=== PATIENT | male | born 1950 | race Caucasian/White ===

== ENCOUNTER 2018-08-13 08:36 | Inpatient (IN) ==
[2018-08-13] MEDS ORDERED: NORMAL SALINE 1,000 ML IV PRN (08:54)
--- NOTE | 2018-08-13 09:04 | ERNOTE ---
Trauma/Assault HPI - General Stated Complaint: fall Time Seen by Provider: 08/13/18 08:42 Source: patient, family Exam Limitations: clinical condition - Immun/Allergies/Home Medications Immunizations: IMMUNIZATION HX Immunizations Up to Date No Allergies/Adverse Reactions: Allergies cat dander Allergy (Intermediate, Verified 08/13/18 08:45) Swelling (Other) 01/12/2013 Home Medications: HOME MEDICATIONS aspirin 81 mg tablet,delayed release 81 mg PO DAILY 09/29/17 [Last Taken Unknown] silver sulfadiazine 1 % topical cream 1 applic TP DAILY #25 g 01/04/18 [Last Taken Unknown] benazepril 20 mg tablet 20 mg PO BID #180 tab 01/12/18 [Last Taken Unknown] glipizide 10 mg tablet 10 mg PO BID #180 tab 01/12/18 [Last Taken Unknown] metformin 1,000 mg tablet 1,000 mg PO BID #180 tab 01/12/18 [Last Taken Unknown] gabapentin 100 mg capsule 100 mg PO BID #60 cap 06/17/18 [Last Taken Unknown] furosemide 20 mg tablet 20 mg PO DAILY #3 tab 07/20/18 [Last Taken Unknown] - History of Present Illness Narrative: Patient brought in by EMS due to fall. He fell in the bathroom approximately 1800 last night was there overnight because he was unable to get up and unable to contact anyone. He is alert and oriented x4 although sometimes he is somewhat confused about situation or place but then reorients pretty quickly. He states he has fallen a number of times over the last 6 months or so. He states he did not fall hard but lowered himself to the floor and was unable to get up. Location Occurred: Reports: home Pain Location: Reports: none Method of Injury: Reports: fall Severity: moderate Loss of Consciousness: Reports: no loss of consciousness Review of Systems - Review of Systems Constitutional: Present: chills - Over the past 2 to 3 days, weakness, fatigue. Absent: recent illness EYE: Absent: vision changes ENT: Absent: nose congestion, nasal drainage Respiratory: Absent: shortness of breath Cardiology: Absent: chest pain Gastrointestinal/Abdominal: Absent: nausea, vomiting, abdominal pain Genitourinary: Present: frequency - which is usual for him. . Absent: pain, dysuria Musculoskeletal: Absent: back pain, joint pain Skin: Present: rash, lesions - on left foot, has been there for years and has had Dr. Fischer treat it in the past. , change in color - right foot Neurological: Present: weakness, numbness - diabetic neuropathy in feet. Endocrine: Present: excessive sweating Hematologic/Lymphatic: Present: easy bruising Medical History (Updated 08/13/18 @ 10:29 by Sukumar Anderson DO) Type II diabetes mellitus (Chronic) Diabetic foot ulcer (Chronic) Diabetes mellitus, type II (Chronic) Onset Date: 04/08/16 Diabetic polyneuropathy (Chronic) Onset Date: 10/14/12 Morbid obesity with BMI of 40.0-44.9, adult (Chronic) Onset Date: 10/21/16 Hyperlipidemia (Chronic) Onset Date: 04/08/16 Hypertension, essential (Chronic) Onset Date: 04/08/16 CKD (chronic kidney disease) stage 3, GFR 30-59 ml/min (Chronic) Onset Date: 08/04/16 Influenza vaccine refused Patient does not want to receive. 12/31/17 Surgical History: Surgical History (Updated 10/30/17 @ 15:35 by Rita Paredes RN) Cataract Onset Date: 2011 Colonoscopy refused Onset Date: 01/15/17 History of tonsillectomy Onset Date: 1956 Family History: Family History (Updated 09/29/17 @ 13:43 by Jigna Hinton LPN) Father Cancer Liver cancer Mother Cancer colon cancer Social History: Preferred Language Syriac Smoking Status Never smoker Alcohol Use none Drug Use none (Last Updated 07/19/18 @ 12:22 by Ella Inman MD) No Social History Section defined Physical Exam - Physical Exam General Appearance: Present: wd/wn, alert, no apparent distress Head Exam: Present: normal inspection, no evidence of injury Eye Exam: Normal inspection: bilateral Ears, Nose, Throat: Present: dry mucous membranes Neck: Present: normal inspection, nontender, supple Respiratory: Present: no respiratory distress, no accessory muscle use, chest nontender, lungs clear Cardiovascular/Chest: Present: regular rate, rhythm, no murmur Gastrointestinal/Abdominal: Present: normal bowel sounds, nontender, nondistended, soft Extremity Exam: Present: normal except -, other - Swelling of left great toe that patient states is chronic. Neurological Exam: Present: alert, oriented, normal mood/affect Skin Exam: Present: skin rash - Erythema to the right foot almost to the ankle there is a slight abrasion on the lateral fifth toe on the right. Left great toe is 2-2.5 times the size of the right. there is a large ulcerative lesion on the pad of the left great toe that is black and seems to be ulcerated in the center does have somewhat of a warty look Detailed Trauma Exam Best Eye Response ([place]): (4) open spontaneously Best Verbal Response ([place]): (4) confused conversation - Some of the time Best Motor Response ([place]): (6) obeys commands [place] Total: 14 - C-Spine cleared by: Neg C-spine CT & exam Progress - Results and Orders Patient's Lab Results:: I have reviewed the patient's lab results. Results and Orders: Laboratory Tests 08/13/18 08/13/18 08/13/18 09:05 09:05 09:05 WBC 15.3 H Hgb 13.0 L Hct 40.1 L Plt Count 295 Neutrophils % 89.8 H Sodium 135 Potassium 4.3 Chloride 98 BUN 55 H D Creatinine 2.19 H D Random Glucose 229 H Lactic Acid, Venous 2.3 H* Calcium 9.1 Total Bilirubin 0.9 AST 322 H ALT 131 H Creatine Kinase 7237 H Albumin 2.5 L Ethyl Alcohol Less than 3.0 - Vital Signs Patient's Vital Signs:: I have reviewed the patient's vital signs. Vital Signs: Vital Signs 08/13/18 08:40 Temperature 37.2 C Pulse Rate 101 H Respiratory Rate 18 Blood Pressure 158/79 H O2 Sat by Pulse Oximetry 97 - EKG EKG #1 EKG: supraventricular tachycardia, nonspecific ST T wave changes EKG read: Interp. by me - X-Ray X-Ray #1 X-Ray: chest Interpretation: Reviewed by me X-ray Comments: IMPRESSION: Hypoventilatory changes. Left lung basilar atelectasis. Electronically signed by Surendra Gimenez M.D.. - CT/Ultrasound CT/Ultrasound Narrative: Ct head without: IMPRESSION: 1. Evaluation is suboptimal due to patient motion. No obvious acute intracranial process suggested but consider repeat examination when patient is able to cooperate. 2. Additional comments as above. Electronically signed by Surendra Gimenez M.D. CT cervical spine: IMPRESSION: 1. Evaluation suboptimal due to patient motion, but no definite signs of cervical spine fracture. If there is a persistent concern, consider repeat examination when patient is able to cooperate. 2. 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 3. Additional comments are as above. Clinical correlation is still recommended. If there is a persistent clinical concern for injury, consider further evaluation by MRI. Electronically signed by Surendra Gimenez M.D.. - Progress/Reassessment Progress Note-Subjective: 08/13/18 10:[address] Galarza and she agrees with admission Departure Clinical Impression: Cellulitis and abscess of foot Rhabdomyolysis Qualifiers: Rhabdomyolysis type: traumatic Encounter type: initial encounter Qualified Code(s): T79.6XXA - Traumatic ischemia of muscle, initial encounter Sepsis Qualifiers: Sepsis type: sepsis due to unspecified organism Qualified Code(s): A41.9 - Sepsis, unspecified organism - Departure Disposition: Still a patient Condition: Fair Referrals: Ella Inman MD [Primary Care Provider] - Critical Care Time - Critical Care Critical Time Spent:: No
[2018-08-13 09:41] LABS: Hematocrit 40.1 % (42.0-52.0); Mean Cell Volume 84.8 fl (78-100); Mean Corpuscular Hemoglobin 27.5 pg (27-31); Mean Corpuscular Hgb Conc 32.4 g/dl (32-36); Mean Platelet Volume 11.4 fl (8-11.3); Neutrophil # 13.8 K/mm3 (1.3-6.0); Neutrophil % 89.8 % (42-75.0); Platelet Count 295 K/mm3 (150-450); Red Blood Count 4.73 M/mm3 (4.7-6.0); White Blood Count 15.3 K/mm3 (4.0-10.5)
[2018-08-13 09:49] LABS: ALT 131 U/L (19-67); AST 322 U/L (0-48); Albumin * 2.5 gm/dl (3.4-5.0); Alkaline Phosphatase * 49 U/L (50-170); Anion Gap 20.9 mmol/L (6.8-13.8); BUN/Creatinine Ratio 25.1 (9.0-21.6); Bilirubin, Total 0.9 mg/dL (0.0-1.1); Blood Urea Nitrogen 55 mg/dL (6-23); Calcium * 9.1 mg/dL (7.9-10.9); Carbon Dioxide 20.4 mmol/L (24-32.6); Chloride 98 mmol/L (97-106); Glucose * 229 mg/dL (70-110); Potassium 4.3 mmol/L (3.4-4.6); Sodium 135 mmol/L (132-142); Total Protein 7.9 gm/dL (6.2-8.2)
[2018-08-13 10:06] LABS: CK Total * 7237 U/L (0-259)
[2018-08-13 10:20] LABS: Urine Bilirubin 1 mg/dl (NEGATIVE); Urine Blood 250 /ul (NEGATIVE); Urine Ketone 15 mg/dL (NEGATIVE); Urine Nitrite Negative (NEGATIVE); Urine Protein 100 mg/dL (NEGATIVE); Urine Specific Gravity 1.025 SP.GR. (1.005-1.030); Urine Urobilinogen Normal (NORMAL); Urine pH 5.5 pH (5.0-7.0)
[2018-08-13 10:30] LABS: Urine Appearance Cloudy (CLEAR); Urine Color Dark Yellow; Urine WBC 0-5 /hpf (0-5)
[2018-08-13 10:31] LABS: Urine Amorphous Sediment Moderate - 2+ (NONE-FEW); Urine Bacteria 1+; Urine Mucus Moderate - 2+; Urine RBC None Seen /hpf (0-5)
[2018-08-13] MEDS ORDERED: cefTRIAXone SODIUM 1,000 MG/100 ML BAG IV ONE (10:38)
[2018-08-13] MEDS ORDERED: NORMAL SALINE 1,000 ML IV ONE (10:38)
[2018-08-13] MEDS ORDERED: FUROSEMIDE 20 MG TABLET PO SCH (13:00)
--- NOTE | 2018-08-13 14:32 | HP ---
Chief Complaint - Chief Complaint Date of Service: 08/13/18 Time of Service: 12:15 Chief Complaint: Fall History of Present Illness: 67-year-old male with a past medical history of diabetes mellitus type 2, CKD stage III, diabetic foot ulcer, diabetic polyneuropathy, hyperlipidemia, hypertension, morbid obesity presents status post fall. Patient's states he fell in the bathroom and lay there for several days because he was not able to get himself up and he did not have his phone with him. His niece found him on the bathroom floor and states he was likely on the floor for 2-1/2 days. In the emergency department he was found to have leukocytosis of 15,000, acute kidney injury, lactic acidosis, and elevated LFTs. Chest x-ray showed hypoventilatory changes and left lung basilar atelectasis. CT head was negative for any acute intracranial processes but was suboptimal due to patient motion. CT cervical spine was negative for fracture but was also suboptimal due to motion, multilevel cervical spine disease disease and degenerative spondylopathy was noted. Medical History (Updated 08/13/18 @ 16:48 by Ella Inman MD) Type II diabetes mellitus (Chronic) Diabetic foot ulcer (Chronic) Diabetes mellitus, type II (Chronic) Onset Date: 04/08/16 Diabetic polyneuropathy (Chronic) Onset Date: 10/14/12 Morbid obesity with BMI of 40.0-44.9, adult (Chronic) Onset Date: 10/21/16 Hyperlipidemia (Chronic) Onset Date: 04/08/16 Hypertension, essential (Chronic) Onset Date: 04/08/16 CKD (chronic kidney disease) stage 3, GFR 30-59 ml/min (Chronic) Onset Date: 08/04/16 Influenza vaccine refused Patient does not want to receive. 12/31/17 Surgical History: Surgical History (Updated 08/13/18 @ 14:32 by Ella Inman MD) Cataract Onset Date: 2011 Colonoscopy refused Onset Date: 01/15/17 History of tonsillectomy Onset Date: 1956 Family History: Family History (Updated 09/29/17 @ 13:43 by Jigna Hinton LPN) Father Cancer Liver cancer Mother Cancer colon cancer Social History: Preferred Language Kiswahili Smoking Status Never smoker Alcohol Use none Drug Use none (Last Updated 07/19/18 @ 12:22 by Ella Inman MD) No Social History Section defined Review Of Systems (GEN) - Review of Systems Generalized/Overall Review: Present: Fever Respiratory: Absent: Shortness of Breath Cardiac: Absent: Chest Pain Abdominal: Absent: Abdominal Pain Musculoskeletal: Present: Joint Pain, Joint Swelling Skin: Present: Lesions Misc: All systems neg except as marked Immunizations: IMMUNIZATION HX Immunizations Up to Date No Allergies/Adverse Reactions: Allergies Allergy/AdvReac Type Severity Reaction Status Date / Time cat dander Allergy Intermediate Swelling Verified 08/13/18 15:23 (Other) Home Medications: HOME MEDICATIONS aspirin 81 mg tablet,delayed release 81 mg PO DAILY 09/29/17 [Last Taken Unknown] benazepril 20 mg tablet 20 mg PO BID #180 tab 01/12/18 [Last Taken Unknown] glipizide 10 mg tablet 10 mg PO BID #180 tab 01/12/18 [Last Taken Unknown] metformin 1,000 mg tablet 1,000 mg PO BID #180 tab 01/12/18 [Last Taken Unknown] gabapentin 100 mg capsule 100 mg PO BID #60 cap 06/17/18 [Last Taken Unknown] furosemide 20 mg tablet 20 mg PO DAILY #3 tab 07/20/18 [Last Taken Unknown] Exam - Exam Vital Signs: Vital Signs - Last Taken Temp 39.0 C H 08/13/18 13:12 Pulse 122 H 08/13/18 13:12 Resp 24 H 08/13/18 13:12 BP 138/69 08/13/18 13:12 Pulse Ox 95 08/13/18 13:12 Constitutional: Present: Alert, Oriented x3, Cooperative, Well developed, Well nourished, No distress, Middle aged, Obese ENT Exam: Present: hearing grossly normal, dry mucous membranes Eye Exam: bilateral eye: PERRL Neck: Present: non-tender, supple, trachea midline. Absent: lymphadenopathy (R), lymphadenopathy (L) Back Exam: Present: other - Excoriation posterior to left shoulder Respiratory: Present: lungs clear, No wheezing. Absent: crackles, rhonchi Cardiovascular/Chest: Present: normal peripheral pulses, regular rate, rhythm, no murmur Peripheral Pulses: dorsalis-pedis (R): 1+, dorsalis-pedis (L): 1+ Abdomen: Present: Normal bowel sounds, soft, nontender, obese Extremity: Present: pedal edema. Absent: normal range of motion Skin Exam: Present: warm/dry, other - Erythema of the left lower leg, excoriation posterior to the left shoulder, erythematous nodule lateral to left hip, open necrotic appearing black wound on plantar aspect of left great toe with swelling. Neurologic: Present: alert, normal mood/affect Appearance: Present: appropriate appearance, appropriate insight Eye contact: Present: cooperative, good eye contact Thoughts: Present: normal thought pattern, normal mood /affect Diagnostic Studies: Abnormal Lab Results 08/13/18 08/13/18 08/13/18 Range/Units 09:05 09:05 09:05 WBC 15.3 H (4.0-10.5) K/mm3 Hgb 13.0 L (13.5-18.0) gm/dL Hct 40.1 L (42.0-52.0) % MPV 11.4 H (8-11.3) fl Immature Gran % (Auto) 0.60 H (0.001-0.429) % Immature Gran # (Auto) 0.09 H (0.000-0.0310) K/mm3 Neutrophils % 89.8 H (42-75.0) % Lymphocytes % 3.6 L (20-51) % Neutrophils # 13.8 H (1.3-6.0) K/mm3 Lymphocytes # 0.55 L (1.5-3.5) k/mm3 Carbon Dioxide 20.4 L (24-32.6) mmol/L Anion Gap 20.9 H (6.8-13.8) mmol/L BUN 55 H D (6-23) mg/dL Creatinine 2.19 H D (0.4-1.4) mg/dL Est GFR (Non-Af Amer) 32 L D (60-130) mL/min BUN/Creatinine Ratio 25.1 H (9.0-21.6) Random Glucose 229 H (70-110) mg/dL Lactic Acid, Venous 2.3 H* (0.4-2.0) mmol/L AST 322 H (0-48) U/L ALT 131 H (19-67) U/L Alkaline Phosphatase 49 L (50-170) U/L Creatine Kinase 7237 H (0-259) U/L Albumin 2.5 L (3.4-5.0) gm/dl Urine Protein (NEGATIVE) mg/dL Urine Blood (NEGATIVE) /ul Urine Bilirubin (NEGATIVE) mg/dl Prot Sulfosalicylic Acd (0) mg/dL Amorphous Sediment (NONE-FEW) Urine Bacteria (NONE) Urine Mucus (NONE) 08/13/18 Range/Units 09:54 WBC (4.0-10.5) K/mm3 Hgb (13.5-18.0) gm/dL Hct (42.0-52.0) % MPV (8-11.3) fl Immature Gran % (Auto) (0.001-0.429) % Immature Gran # (Auto) (0.000-0.0310) K/mm3 Neutrophils % (42-75.0) % Lymphocytes % (20-51) % Neutrophils # (1.3-6.0) K/mm3 Lymphocytes # (1.5-3.5) k/mm3 Carbon Dioxide (24-32.6) mmol/L Anion Gap (6.8-13.8) mmol/L BUN (6-23) mg/dL Creatinine (0.4-1.4) mg/dL Est GFR (Non-Af Amer) (60-130) mL/min BUN/Creatinine Ratio (9.0-21.6) Random Glucose (70-110) mg/dL Lactic Acid, Venous (0.4-2.0) mmol/L AST (0-48) U/L ALT (19-67) U/L Alkaline Phosphatase (50-170) U/L Creatine Kinase (0-259) U/L Albumin (3.4-5.0) gm/dl Urine Protein 100 H (NEGATIVE) mg/dL Urine Blood 250 H (NEGATIVE) /ul Urine Bilirubin 1 H (NEGATIVE) mg/dl Prot Sulfosalicylic Acd 4+ H (0) mg/dL Amorphous Sediment Moderate - 2+ H (NONE-FEW) Urine Bacteria 1+ H (NONE) Urine Mucus Moderate - 2+ H (NONE) Laboratory Results WBC 15.3 K/mm3 (4.0-10.5) H 08/13/18 09:05 RBC 4.73 M/mm3 (4.7-6.0) 08/13/18 09:05 Hgb 13.0 gm/dL (13.5-18.0) L 08/13/18 09:05 Hct 40.1 % (42.0-52.0) L 08/13/18 09:05 MCV 84.8 fl (78-100) 08/13/18 09:05 MCH 27.5 pg (27-31) 08/13/18 09:05 MCHC 32.4 g/dl (32-36) 08/13/18 09:05 RDW 14.0 % (11.5-14.0) 08/13/18 09:05 Plt Count 295 K/mm3 (150-450) 08/13/18 09:05 MPV 11.4 fl (8-11.3) H 08/13/18 09:05 Immature Gran % (Auto) 0.60 % (0.001-0.429) H 08/13/18 09:05 Immature Gran # (Auto) 0.09 K/mm3 (0.000-0.0310) H 08/13/18 09:05 89.8 % (42-75.0) H 08/13/18 09:05 3.6 % (20-51) L 08/13/18 09:05 5.9 % (0.0-9) 08/13/18 09:05 0.0 % (0.0-3.0) 08/13/18 09:05 0.1 % (0.0-1.0) 08/13/18 09:05 Nucleated RBC % 0.0 k/mm3 (0-1) 08/13/18 09:05 13.8 K/mm3 (1.3-6.0) H 08/13/18 09:05 0.55 k/mm3 (1.5-3.5) L 08/13/18 09:05 0.9 k/mm3 (0.0-1.0) 08/13/18 09:05 0.0 k/mm3 (0.0-0.7) 08/13/18 09:05 Absolute Basophils 0.0 k/mm3 (0.0-0.1) 08/13/18 09:05 Sodium 135 mmol/L (132-142) 08/13/18 09:05 137 mmol/L (130-142) 08/13/18 09:05 Potassium 4.3 mmol/L (3.4-4.6) 08/13/18 09:05 Chloride 98 mmol/L (97-106) 08/13/18 09:05 Carbon Dioxide 20.4 mmol/L (24-32.6) L 08/13/18 09:05 20.9 mmol/L (6.8-13.8) H 08/13/18 09:05 BUN 55 mg/dL (6-23) H D 08/13/18 09:05 2.19 mg/dL (0.4-1.4) H D 08/13/18 09:05 Est GFR (Non-Af Amer) 32 mL/min (60-130) L D 08/13/18 09:05 25.1 (9.0-21.6) H 08/13/18 09:05 229 mg/dL (70-110) H 08/13/18 09:05 1.7 mmol/L (0.4-2.0) 08/13/18 12:00 Calcium 9.1 mg/dL (7.9-10.9) 08/13/18 09:05 Calcium Adj for Albumin 10.0 mg/dL (8.4-10.2) 08/13/18 09:05 0.9 mg/dL (0.0-1.1) 08/13/18 09:05 AST 322 U/L (0-48) H 08/13/18 09:05 ALT 131 U/L (19-67) H 08/13/18 09:05 49 U/L (50-170) L 08/13/18 09:05 7237 U/L (0-259) H 08/13/18 09:05 7.9 gm/dL (6.2-8.2) 08/13/18 09:05 2.5 gm/dl (3.4-5.0) L 08/13/18 09:05 Dark yellow 08/13/18 09:54 Cloudy (CLEAR) 08/13/18 09:54 5.5 pH (5.0-7.0) 08/13/18 09:54 Ur Specific [place] 1.025 SP.GR. (1.005-1.030) 08/13/18 09:54 100 mg/dL (NEGATIVE) H 08/13/18 09:54 Negative mg/dL (NEGATIVE) 08/13/18 09:54 15 mg/dL (NEGATIVE) 08/13/18 09:54 250 /ul (NEGATIVE) H 08/13/18 09:54 Negative (NEGATIVE) 08/13/18 09:54 1 mg/dl (NEGATIVE) H 08/13/18 09:54 Negative (NEGATIVE) 08/13/18 09:54 Prot Sulfosalicylic Acd 4+ mg/dL (0) H 08/13/18 09:54 Normal EU/dl (NORMAL) 08/13/18 09:54 Ur Leukocyte Esterase Negative /ul (NEGATIVE) 08/13/18 09:54 None seen /hpf (0-5) 08/13/18 09:54 0-5 /hpf (0-5) 08/13/18 09:54 Ur Epithelial Cells 0-5 /hpf (0-5) 08/13/18 09:54 Amorphous Sediment Moderate - 2+ (NONE-FEW) H 08/13/18 09:54 1+ (NONE) H 08/13/18 09:54 Moderate - 2+ (NONE) H 08/13/18 09:54 No culture indicated 08/13/18 09:54 Ethyl Alcohol Less than 3.0 mg/dL (0.0-10.0) 08/13/18 09:05 Assessment/Plan - Narrative Narrative: 67-year-old male with a past medical history of diabetes mellitus type 2, CKD stage III, diabetic foot ulcer, diabetic polyneuropathy, hyperlipidemia, hypertension, morbid obesity presents status post fall. Patient's states he fell in the bathroom and lay there for several days because he was not able to get himself up and he did not have his phone with him. His niece found him on the bathroom floor and states he was likely on the floor for 2-1/2 days. In the emergency department he was found to have leukocytosis of 15,000, acute kidney injury, lactic acidosis, and elevated LFTs. Chest x-ray negative for acute process. CT head was negative for any acute intracranial processes. CT cervical spine was negative for fracture. He was started on ceftriaxone 1 g, consult to Dr. Fischer was placed for the wound. Awaiting results of wound culture and blood cultures. - Assessment/Plan (1) Sepsis Assessment: Continue with ceftriaxone for now, awaiting blood cultures. Continue with IV fluids. Monitor chemistry and CBC. Problem: Acute Qualifiers: Sepsis type: sepsis due to unspecified organism Qualified Code(s): A41.9 - Sepsis, unspecified organism (2) Rhabdomyolysis Assessment: Continue with IV fluids. Problem: Acute Qualifiers: Rhabdomyolysis type: traumatic Encounter type: initial encounter Qualified Code(s): T79.6XXA - Traumatic ischemia of muscle, initial encounter (3) Diabetic foot ulcer Assessment: Continue plan per podiatry, Dr. Fischer. She debrided the wound today. She has obtained wound cultures and x-ray. Problem: Chronic Qualifiers: Diabetic foot ulcer location: toe Diabetes mellitus type: type 2 Laterality: left Non-pressure ulcer stage: with fat layer exposed Qualified Code(s): E11.621 - Type 2 diabetes mellitus with foot ulcer; L97.522 - Non- pressure chronic ulcer of other part of left foot with fat layer exposed (4) Acute kidney injury superimposed on chronic kidney disease Assessment: Likely prerenal secondary to dehydration. Continue with IV fluids and monitor chemistry. Problem: Acute (5) Cellulitis Assessment: Probable cellulitis of left lower extremity. Continue with ceftriaxone for now. Problem: Suspected (6) Diabetic polyneuropathy Assessment: Stable. Problem: Chronic Qualifiers: Diabetes mellitus type: type 2 Qualified Code(s): E11.42 - Type 2 diabetes mellitus with diabetic polyneuropathy (7) Hypertension, essential Assessment: Stable. Problem: Chronic (8) Type II diabetes mellitus Assessment: Will resume home meds once tolerating diet. Problem: Chronic Qualifiers: Diabetes mellitus care home insulin use: without intermediate school teacher use Diabetes mellitus complication status: with kidney complications Diabetes mellitus complication detail: with chronic kidney disease Chronic kidney disease stage: stage 3 (moderate) Qualified Code(s): E11.22 - Type 2 diabetes mellitus with diabetic chronic kidney disease; N18.3 - Chronic kidney disease, stage 3 (moderate) (9) Elevated LFTs Problem: Acute
--- NOTE | 2018-08-13 14:53 | CONS ---
- Reason for consultation (1) Diabetic foot ulcer Date of Service: 08/13/18 HPI - General Narrative: Pt is evaluated today at bedside resting. States that he was admitted this morning after he was found on his bathroom floor by his niece. He was brought to the ED, and was admitted from there. He has a chronic ulceration to the plantar surface of his left great toe, that has been present for several months. I had previously been providing care to this ulceration, however patient has failed to follow up over the last several months. Ulceration has not been dressed, and patient cannot remember the last time he had any dressings on it. I was consulted for further evaluation and treatment. Source: patient - History of Present Illness Allergies/Adverse Reactions: Allergies cat dander Allergy (Intermediate, Verified 08/13/18 08:45) Swelling (Other) 01/12/2013 Home Medications: Home Medications Medication Instructions Recorded Last Taken aspirin 81 mg tablet,delayed 81 mg PO DAILY 09/29/17 Unknown release silver sulfadiazine 1 % topical 1 applic TP DAILY #25 g 01/04/18 Unknown cream benazepril 20 mg tablet 20 mg PO BID #180 tab 01/12/18 Unknown glipizide 10 mg tablet 10 mg PO BID #180 tab 01/12/18 Unknown metformin 1,000 mg tablet 1,000 mg PO BID #180 tab 01/12/18 Unknown gabapentin 100 mg capsule 100 mg PO BID #60 cap 06/17/18 Unknown furosemide 20 mg tablet 20 mg PO DAILY #3 tab 07/20/18 Unknown Procedures Insertion of intraocular lens prosthesis at time of cataract extraction, one-sta ge (01/12/12) Phacoemulsification and aspiration of cataract (01/12/12) Medications - Medications Current Medications: Current Medications Sodium Chloride (Sodium Chloride 0.9%) 1,000 mls @ 999 mls/hr IV .Q1H1M PRN PRN Reason: HYDRATION Stop: 09/12/18 08:55 Last Infusion: 08/13/18 11:46 Dose: Infused Documented by: Review of Systems - Review of Systems Generalized/Overall Review: Present: Weakness, Chills Respiratory: Absent: Shortness of Breath Cardiac: Present: Edema Abdominal: Absent: Nausea, Vomiting, Diarrhea Neurological: Present: Numbness Skin: Present: Other - left great toe ulceration Physical Examination - Exam Vital Signs: Vital Signs - Last Taken Temp 39.0 C H 05/31/19 13:12 Pulse 122 H 08/13/18 13:12 Resp 24 H 08/13/18 13:12 BP 138/69 08/13/18 13:12 Pulse Ox 95 08/13/18 13:12 O2 Oxygen Delivery Method Room Air Constitutional: Present: Alert, Oriented x3, Cooperative Peripheral Pulses: dorsalis-pedis (R): 2+, dorsalis-pedis (L): 2+ Extremity: Present: lower extremity edema Skin Exam: Present: other - Ulceration to the plantar IPJ of the left great toe measuring 1.5 x 1 x 0.8 cm. No tunneling or undermining. Loss of tissue to full thickness with exposure of subcutaneous fat layer. Base mostly red, granular. Surrounding tissue with significant hyperkeratosis, with pet hair that is embedded in callus tissue. There is a minimal amount of purulent drainage, slight malodor present. No exposed tendon or bone at this time, ho wever bone is very close in proximity to the base of the ulceration. Appearance: Present: disheveled Eye contact: Present: cooperative - Results and Findings: Lab/Microbiology results last 24 hrs: Abnormal/Pending Laboratory Last 24 HRS 08/13/18 08/13/18 08/13/18 09:54 09:05 09:05 WBC Hgb Hct MPV Immature Gran % (Auto) Immature Gran # (Auto) Neutrophils % Lymphocytes % Neutrophils # Lymphocytes # Carbon Dioxide 20.4 L Anion Gap 20.9 H BUN 55 H D Creatinine 2.19 H D Est GFR (Non-Af Amer) 32 L D BUN/Creatinine Ratio 25.1 H Random Glucose 229 H Lactic Acid, Venous 2.3 H* AST 322 H ALT 131 H Alkaline Phosphatase 49 L Creatine Kinase 7237 H Albumin 2.5 L Urine Protein 100 H Urine Blood 250 H Urine Bilirubin 1 H Prot Sulfosalicylic Acd 4+ H Amorphous Sediment Moderate - 2+ H Urine Bacteria 1+ H Urine Mucus Moderate - 2+ H 08/13/18 09:05 WBC 15.3 H Hgb 13.0 L Hct 40.1 L MPV 11.4 H Immature Gran % (Auto) 0.60 H Immature Gran # (Auto) 0.09 H Neutrophils % 89.8 H Lymphocytes % 3.6 L Neutrophils # 13.8 H Lymphocytes # 0.55 L Carbon Dioxide Anion Gap BUN Creatinine Est GFR (Non-Af Amer) BUN/Creatinine Ratio Random Glucose Lactic Acid, Venous AST ALT Alkaline Phosphatase Creatine Kinase Albumin Urine Protein Urine Blood Urine Bilirubin Prot Sulfosalicylic Acd Amorphous Sediment Urine Bacteria Urine Mucus - Assessments/Findings (1) Diabetic foot ulcer Diagnosis(s): Verbal consent obtained from patient for bedside debridement. Ulceration debrided to subcutaneous tissue with #15 blade, excising all hyperkeratotic tissue down to bleeding, subcutaneous wound margins. Surface of the ulceration also debrided with #15 blade, removing any devitalized tissue down to healthy bleeding, subcutaneous wound bed. Hemostasis with compression. Pt tolerated well. Swab culture obtained from wound bed. Will await results, and order ABX accordingly. Wound dressed with Aquacel Ag, dry gauze, andrea and TAWANDA bandage. Dressings to be change daily. Continue on current medications at this time. Will order xray of the left foot to assess bone integrity, given close proximity of bone underlying this ulceration. Will discuss further treatment options pending xray and culture results. Pt to minimize weight on the foot when possible to help reduce pressure on the ulceration, to help promote healing. Will order surgical shoe to assist with offloading when ambulatory. Will continue to follow. Problem: Chronic Qualifiers: Diabetic foot ulcer location: toe Diabetes mellitus type: type 2 La terality: left Non-pressure ulcer stage: with fat layer exposed Qualified Code(s): E11.621 - Type 2 diabetes mellitus with foot ulcer
[2018-08-13] MEDS: NORMAL SALINE 1,000 ML IV PRN ×2 (15:15→22:50)
[2018-08-13] MEDS: ENOXAPARIN SODIUM 40 MG/0.4 ML SYRG SC SCH (15:18)
[2018-08-13] MEDS: GABAPENTIN 100 MG CAPSULE PO SCH ×2 (15:18→21:32)
[2018-08-13] MEDS: ASPIRIN 81 MG TABLET.DR PO SCH (15:18)
[2018-08-13] MEDS: glipiZIDE 10 MG TABLET PO SCH ×2 (15:19→21:32)
[2018-08-13] MEDS: ACETAMINOPHEN 325 MG TABLET PO PRN (19:47)
[2018-08-13] MEDS: ENALAPRIL MALEATE 20 MG TABLET PO SCH (21:32)
[2018-08-13] MEDS ORDERED: MAG HYDROX/ALUMINUM HYD/SIMETH 30 ML UDC ONE (23:24)
[2018-08-13] MEDS ORDERED: MAG HYDROX/ALUMINUM HYD/SIMETH 30 ML UDC PO PRN (23:25)
[2018-08-14] MEDS: ACETAMINOPHEN 325 MG TABLET PO PRN ×4 (04:31→19:01)
[2018-08-14 06:23] LABS: Hematocrit 33.5 % (42.0-52.0); Hemoglobin 11.2 gm/dL (13.5-18.0); Mean Cell Volume 84.4 fl (78-100); Mean Corpuscular Hemoglobin 28.2 pg (27-31); Mean Corpuscular Hgb Conc 33.4 g/dl (32-36); Mean Platelet Volume 10.5 fl (8-11.3); Neutrophil # 8.9 K/mm3 (1.3-6.0); Neutrophil % 76.7 % (42-75.0); Platelet Count 252 K/mm3 (150-450); Red Blood Count 3.97 M/mm3 (4.7-6.0); Red Cell Distribution Width 14.4 % (11.5-14.0); White Blood Count 11.6 K/mm3 (4.0-10.5)
[2018-08-14 06:45] LABS: Albumin * 1.9 gm/dl (3.4-5.0); Anion Gap 15.4 mmol/L (6.8-13.8); Bilirubin, Total 0.6 mg/dL (0.0-1.1); Ca. Corrected For Albumin 9.2 mg/dL (8.4-10.2); Calcium * 7.8 mg/dL (7.9-10.9); Carbon Dioxide 21.5 mmol/L (24-32.6); Potassium 3.9 mmol/L (3.4-4.6); Total Protein 6.3 gm/dL (6.2-8.2)
[2018-08-14] MEDS: NORMAL SALINE 1,000 ML IV PRN ×2 (07:18→17:18)
[2018-08-14] MEDS: GABAPENTIN 100 MG CAPSULE PO SCH ×2 (08:27→20:58)
[2018-08-14] MEDS: ASPIRIN 81 MG TABLET.DR PO SCH (08:27)
[2018-08-14] MEDS: glipiZIDE 10 MG TABLET PO SCH ×2 (08:28→20:58)
[2018-08-14] MEDS: ENALAPRIL MALEATE 20 MG TABLET PO SCH ×2 (08:31→20:59)
[2018-08-14] MEDS ORDERED: ACETAMINOPHEN 325 MG TABLET PO PRN (11:52)
--- NOTE | 2018-08-14 11:57 | PN ---
Subjective - Date and Time Seen Date: 08/14/18 Time: 09:25 Subjective Narrative: He complains of right-sided chest pain with movement and palpation. He continues to have pain with movement of his left shoulder. Objective - Review of Systems Generalized/Overall Review: Denies: Fever Respiratory: Denies: Cough, Shortness of Breath Cardiac: Reports: Chest Pain - Right-sided, with movement, breathing and palpation, Edema Abdominal: Denies: Nausea, Vomiting, Abdominal Pain Musculoskeletal Complaints: Reports: Joint Pain Misc: All systems neg except as marked - Vitals Vitals: Last Vital Signs Temp 36.6 C 08/14/18 10:00 Pulse 86 08/14/18 10:00 Resp 20 08/14/18 10:00 BP 127/80 08/14/18 10:00 Pulse Ox 97 08/14/18 10:00 - Abnormal Lab Findings Abnormal Lab Findings: Abnormal Lab Results 08/14/18 08/14/18 Range/Units 06:20 06:20 WBC 11.6 H D (4.0-10.5) K/mm3 RBC 3.97 L (4.7-6.0) M/mm3 Hgb 11.2 L (13.5-18.0) gm/dL Hct 33.5 L (42.0-52.0) % RDW 14.4 H (11.5-14.0) % Immature Gran % (Auto) 1.00 H (0.001-0.429) % Immature Gran # (Auto) 0.12 H (0.000-0.0310) K/mm3 Neutrophils % 76.7 H (42-75.0) % Lymphocytes % 13.2 L (20-51) % Neutrophils # 8.9 H (1.3-6.0) K/mm3 Carbon Dioxide 21.5 L (24-32.6) mmol/L Anion Gap 15.4 H (6.8-13.8) mmol/L BUN 58 H (6-23) mg/dL Creatinine 2.00 H (0.4-1.4) mg/dL Est GFR (Non-Af Amer) 35 L (60-130) mL/min BUN/Creatinine Ratio 29.0 H (9.0-21.6) Random Glucose 125 H D (70-110) mg/dL Calcium 7.8 L (7.9-10.9) mg/dL AST 207 H (0-48) U/L ALT 103 H (19-67) U/L Alkaline Phosphatase 42 L (50-170) U/L Creatine Kinase 3416 H (0-259) U/L Albumin 1.9 L (3.4-5.0) gm/dl - Exam Constitutional: Present: Alert, Cooperative, Well developed, Well nourished, No distress, Obese ENT Exam: Present: hearing grossly normal Neck: Present: trachea midline. Absent: lymphadenopathy (R), lymphadenopathy (L) Respiratory: Present: lungs clear, no respiratory distress, no accessory muscle use, No wheezing. Absent: crackles, rhonchi Cardiovascular/Chest: Present: normal peripheral pulses, regular rate, rhythm, no murmur Abdomen: Present: Normal bowel sounds, soft, nontender Extremity: Present: pedal edema Skin Exam: Present: normal color, warm/dry Neurologic: Present: alert, normal mood/affect Appearance: Present: appropriate appearance, appropriate insight Eye contact: Present: cooperative Thoughts: Present: normal mood /affect Assessment/Plan Plan Narrative: 67-year-old male with a past medical history of diabetes mellitus type 2, CKD stage III, diabetic foot ulcer, diabetic polyneuropathy, hyperlipidemia, hypertension, morbid obesity presents status post fall. Patient's states he fell in the bathroom and lay there for several days because he was not able to get himself up and he did not have his phone with him. His niece found him on the bathroom floor and states he was likely on the floor for 2-1/2 days. In the emergency department he was found to have leukocytosis of 15,000, acute kidney injury, lactic acidosis, and elevated LFTs. Chest x-ray negative for acute process. CT head was negative for any acute intracranial processes. CT cervical spine was negative for fracture. Wound culture and blood cultures growing gram-negative bacilli. Awaiting sensitivities. Continue with ceftriaxone 1 g every 24 hours day 2. - Problems/Diagnosis (1) Sepsis Problem: Acute Qualifiers: Sepsis type: sepsis due to unspecified organism Qualified Code(s): A41.9 - Sepsis, unspecified organism Narrative: Likely secondary to infected wound on great toe of left foot. Wound and blood cultures positive for gram-negative bacilli. Continue with ceftriaxone, awaiting susceptibility results. (2) Rhabdomyolysis Problem: Acute Qualifiers: Rhabdomyolysis type: traumatic Encounter type: initial encounter Qualified Code(s): T79.6XXA - Traumatic ischemia of muscle, initial encounter Narrative: Continue with IV fluids. (3) Diabetic foot ulcer Problem: Chronic Qualifiers: Diabetic foot ulcer location: toe Diabetes mellitus type: type 2 Laterality: left Non-pressure ulcer stage: with fat layer exposed Qualified Code(s): E11.621 - Type 2 diabetes mellitus with foot ulcer; L97.522 - Non- pressure chronic ulcer of other part of left foot with fat layer exposed Narrative: Status post debridement. Continue plan per Dr. Fischer. (4) Acute kidney injury superimposed on chronic kidney disease Problem: Acute Narrative: Improving continue with IV fluids. (5) Cellulitis Problem: Suspected Qualifiers: Site of cellulitis of extremity: lower extremity Laterality: left (6) Diabetic polyneuropathy Problem: Chronic Qualifiers: Diabetes mellitus type: type 2 Qualified Code(s): E11.42 - Type 2 diabetes mellitus with diabetic polyneuropathy (7) Hypertension, essential Problem: Chronic (8) Type II diabetes mellitus Problem: Chronic Qualifiers: Diabetes mellitus superintendent marine oil terminal insulin use: without custodial use Diabetes mellitus complication status: with kidney complications Diabetes mellitus complication detail: with chronic kidney disease Chronic kidney disease stage: stage 3 (moderate) Qualified Code(s): E11.22 - Type 2 diabetes mellitus with diabetic chronic kidney disease; N18.3 - Chronic kidney disease, stage 3 (moderate) (9) Elevated LFTs Problem: Acute Narrative: Improving. (10) Right-sided chest wall pain Problem: Acute Narrative: Likely secondary to bone bruise status post fall. He declined a rib x-ray to check for fracture. Start Tylenol as needed for pain.
[2018-08-14] MEDS: ENOXAPARIN SODIUM 40 MG/0.4 ML SYRG SC SCH (14:06)
[2018-08-15] MEDS: NORMAL SALINE 1,000 ML IV PRN ×3 (01:34→18:52)
[2018-08-15 06:20] LABS: Hematocrit 32.7 % (42.0-52.0); Hemoglobin 10.6 gm/dL (13.5-18.0); Mean Cell Volume 85.8 fl (78-100); Mean Corpuscular Hemoglobin 27.8 pg (27-31); Mean Corpuscular Hgb Conc 32.4 g/dl (32-36); Mean Platelet Volume 10.9 fl (8-11.3); Neutrophil # 7.8 K/mm3 (1.3-6.0); Neutrophil % 72.8 % (42-75.0); Platelet Count 291 K/mm3 (150-450); Red Blood Count 3.81 M/mm3 (4.7-6.0); Red Cell Distribution Width 14.7 % (11.5-14.0); White Blood Count 10.8 K/mm3 (4.0-10.5)
[2018-08-15 06:45] LABS: Albumin * 1.8 gm/dl (3.4-5.0); BUN/Creatinine Ratio 31.5 (9.0-21.6); Bilirubin, Total 0.4 mg/dL (0.0-1.1); Ca. Corrected For Albumin 9.2 mg/dL (8.4-10.2); Calcium * 7.8 mg/dL (7.9-10.9); Total Protein 6.2 gm/dL (6.2-8.2)
[2018-08-15] MEDS: ASPIRIN 81 MG TABLET.DR PO SCH (08:41)
[2018-08-15] MEDS: ENALAPRIL MALEATE 20 MG TABLET PO SCH ×2 (08:41→20:36)
[2018-08-15] MEDS: glipiZIDE 10 MG TABLET PO SCH ×2 (08:41→20:35)
[2018-08-15] MEDS: GABAPENTIN 100 MG CAPSULE PO SCH ×2 (08:41→20:36)
[2018-08-15] MEDS: CEFEPIME HCL 2 GM in DEXTROSE 5 % IN WATER 100 ML IV SCH ×4 (10:42→22:11)
--- NOTE | 2018-08-15 14:28 | PN ---
Subjective - Date and Time Seen Date: 08/15/18 Time: 11:05 Subjective Narrative: He continues to complain of right sided rib pain Objective - Review of Systems Generalized/Overall Review: Denies: Chills, Fever Respiratory: Reports: Shortness of Breath Cardiac: Reports: Chest Pain Abdominal: Denies: Abdominal Pain Musculoskeletal Complaints: Reports: Joint Pain Misc: All systems neg except as marked - Vitals Vitals: Last Vital Signs Temp 37.5 C 08/15/18 10:00 Pulse 86 08/15/18 13:43 Resp 20 08/15/18 10:00 BP 124/66 08/15/18 10:00 Pulse Ox 96 08/15/18 10:00 - Abnormal Lab Findings Abnormal Lab Findings: Abnormal Lab Results 08/15/18 08/15/18 Range/Units 05:40 05:40 WBC 10.8 H (4.0-10.5) K/mm3 RBC 3.81 L (4.7-6.0) M/mm3 Hgb 10.6 L (13.5-18.0) gm/dL Hct 32.7 L (42.0-52.0) % RDW 14.7 H (11.5-14.0) % Immature Gran % (Auto) 3.20 H (0.001-0.429) % Immature Gran # (Auto) 0.34 H (0.000-0.0310) K/mm3 Lymphocytes % 12.3 L (20-51) % Monocytes % 9.6 H (0.0-9) % Neutrophils # 7.8 H (1.3-6.0) K/mm3 Lymphocytes # 1.32 L (1.5-3.5) k/mm3 Carbon Dioxide 20.0 L (24-32.6) mmol/L Anion Gap 16.0 H (6.8-13.8) mmol/L BUN 53 H (6-23) mg/dL Creatinine 1.68 H (0.4-1.4) mg/dL Est GFR (Non-Af Amer) 43 L D (60-130) mL/min BUN/Creatinine Ratio 31.5 H (9.0-21.6) Random Glucose 146 H (70-110) mg/dL Calcium 7.8 L (7.9-10.9) mg/dL AST 141 H (0-48) U/L ALT 95 H (19-67) U/L Alkaline Phosphatase 41 L (50-170) U/L Creatine Kinase 1314 H (0-259) U/L Albumin 1.8 L (3.4-5.0) gm/dl - Exam Constitutional: Present: Alert, Cooperative, Well developed, Well nourished ENT Exam: Present: hearing grossly normal Neck: Present: trachea midline. Absent: lymphadenopathy (R), lymphadenopathy (L) Respiratory: Present: lungs clear, no respiratory distress, No wheezing. Absent: crackles, rhonchi Cardiovascular/Chest: Present: normal peripheral pulses, regular rate, rhythm, no murmur Abdomen: Present: Normal bowel sounds, soft, nontender Extremity: Present: pedal edema Skin Exam: Present: normal color, warm/dry Appearance: Present: appropriate appearance, appropriate insight Eye contact: Present: cooperative, good eye contact Thoughts: Present: normal mood /affect Assessment/Plan Plan Narrative: 67-year-old male with a past medical history of diabetes mellitus type 2, CKD stage III, diabetic foot ulcer, diabetic polyneuropathy, hyperlipidemia, hypertension, morbid obesity presents status post fall. Patient's states he fell in the bathroom and lay there for several days because he was not able to get himself up and he did not have his phone with him. His niece found him on the bathroom floor and states he was likely on the floor for 2-1/2 days. In the emergency department he was found to have leukocytosis of 15,000, acute kidney injury, lactic acidosis, and elevated LFTs. Chest x-ray negative for acute process. CT head was negative for any acute intracranial processes. CT cervical spine was negative for fracture. Wound culture growing pseudomonas aeruginosa and group C strep., sensitive to cefepime. Blood culture positive for Haemophilus para/Aphrophilus sensitive pansensitive including cefuroxime. Cefepime is an adequate medication to treat both infections. Start cefepime 2 g every 12 hours. Day 4 of antibiotics, day 1 of cefepime. Continue Tylenol for right-sided chest pain. He declined rib x-ray. - Problems/Diagnosis (1) Sepsis Problem: Resolved Qualifiers: Sepsis type: sepsis due to unspecified organism Qualified Code(s): A41.9 - Sepsis, unspecified organism (2) Rhabdomyolysis Problem: Acute Qualifiers: Rhabdomyolysis type: traumatic Encounter type: initial encounter Qualified Code(s): T79.6XXA - Traumatic ischemia of muscle, initial encounter (3) Diabetic foot ulcer Problem: Acute Qualifiers: Diabetic foot ulcer location: toe Diabetes mellitus type: type 2 Laterality: left Non-pressure ulcer stage: with fat layer exposed Qualified Code(s): E11.621 - Type 2 diabetes mellitus with foot ulcer; L97.522 - Non- pressure chronic ulcer of other part of left foot with fat layer exposed (4) Acute kidney injury superimposed on chronic kidney disease Problem: Acute (5) Cellulitis Problem: Ruled-out Qualifiers: Site of cellulitis of extremity: lower extremity Laterality: left (6) Diabetic polyneuropathy Problem: Chronic Qualifiers: Diabetes mellitus type: type 2 Qualified Code(s): E11.42 - Type 2 diabetes mellitus with diabetic polyneuropathy (7) Hypertension, essential Problem: Chronic (8) Type II diabetes mellitus Problem: Chronic Qualifiers: Diabetes mellitus equipment operator intermodal yard insulin use: without equipment operator intermodal yard use Diabetes mellitus complication status: with kidney complications Diabetes mellitus complication detail: with chronic kidney disease Chronic kidney disease stage: stage 3 (moderate) Qualified Code(s): E11.22 - Type 2 diabetes mellitus with diabetic chronic kidney disease; N18.3 - Chronic kidney disease, stage 3 (moderate) (9) Elevated LFTs Problem: Acute (10) Right-sided chest wall pain Problem: Acute (11) Bacteremia Problem: Acute
[2018-08-15] MEDS: ENOXAPARIN SODIUM 40 MG/0.4 ML SYRG SC SCH (15:20)
[2018-08-15] MEDS: ACETAMINOPHEN 325 MG TABLET PO PRN ×2 (18:53→23:59)
[2018-08-16] MEDS: NORMAL SALINE 1,000 ML IV PRN (03:27)
[2018-08-16 06:32] LABS: Hematocrit 31.8 % (42.0-52.0); Hemoglobin 10.4 gm/dL (13.5-18.0); Mean Cell Volume 86.9 fl (78-100); Mean Corpuscular Hemoglobin 28.4 pg (27-31); Mean Corpuscular Hgb Conc 32.7 g/dl (32-36); Mean Platelet Volume 10.4 fl (8-11.3); Platelet Count 312 K/mm3 (150-450); Red Blood Count 3.66 M/mm3 (4.7-6.0); Red Cell Distribution Width 14.9 % (11.5-14.0); White Blood Count 11.1 K/mm3 (4.0-10.5)
[2018-08-16 06:34] LABS: Total Cells Counted 100
[2018-08-16 06:48] LABS: Albumin * 1.7 gm/dl (3.4-5.0); Anion Gap 16.1 mmol/L (6.8-13.8); BUN/Creatinine Ratio 28.4 (9.0-21.6); Bilirubin, Total 0.5 mg/dL (0.0-1.1); Ca. Corrected For Albumin 9.3 mg/dL (8.4-10.2); Calcium * 7.8 mg/dL (7.9-10.9); Carbon Dioxide 19.9 mmol/L (24-32.6)
[2018-08-16 06:53] LABS: Band 1 % (0-2.0); Eosinophil 3 % (0-3); Lymphocyte 23 % (20-51); Monocyte 5 % (0-9); Neutrophil 68 % (42-75); Neutrophil # 7.5 K/mm3 (1.3-6.0); Platelet Estimate Normal (NORMAL); RBC Morphology Normal (NORMAL)
[2018-08-16] MEDS: ENALAPRIL MALEATE 20 MG TABLET PO SCH ×2 (08:10→21:04)
[2018-08-16] MEDS: ASPIRIN 81 MG TABLET.DR PO SCH (08:10)
[2018-08-16] MEDS: GABAPENTIN 100 MG CAPSULE PO SCH ×2 (08:10→21:04)
[2018-08-16] MEDS: glipiZIDE 10 MG TABLET PO SCH ×2 (08:10→21:04)
[2018-08-16] MEDS: ACETAMINOPHEN 325 MG TABLET PO PRN ×3 (08:16→19:37)
[2018-08-16] MEDS: CEFEPIME HCL 2 GM in DEXTROSE 5 % IN WATER 100 ML IV SCH ×4 (10:11→21:05)
--- NOTE | 2018-08-16 10:29 | PN ---
Subjective - Date and Time Seen Date: 08/16/18 Time: 10:00 Subjective Narrative: Continues to complain of right-sided rib pain but states it feels better with Tylenol. Objective - Review of Systems Generalized/Overall Review: Denies: Chills, Fever Respiratory: Denies: Shortness of Breath Cardiac: Reports: Chest Pain - Right-sided rib pain Abdominal: Denies: Abdominal Pain Misc: All systems neg except as marked - Vitals Vitals: Last Vital Signs Temp 37.3 C 08/16/18 06:56 Pulse 73 08/16/18 08:10 Resp 20 08/16/18 06:56 BP 136/69 08/16/18 08:10 Pulse Ox 95 08/16/18 06:56 - Abnormal Lab Findings Abnormal Lab Findings: Abnormal Lab Results 08/16/18 08/16/18 Range/Units 06:28 06:28 WBC 11.1 H (4.0-10.5) K/mm3 RBC 3.66 L (4.7-6.0) M/mm3 Hgb 10.4 L (13.5-18.0) gm/dL Hct 31.8 L (42.0-52.0) % RDW 14.9 H (11.5-14.0) % Neutrophils # (Manual) 7.5 H (1.3-6.0) K/mm3 Chloride 107 H (97-106) mmol/L Carbon Dioxide 19.9 L (24-32.6) mmol/L Anion Gap 16.1 H (6.8-13.8) mmol/L BUN 44 H (6-23) mg/dL Creatinine 1.55 H (0.4-1.4) mg/dL Est GFR (Non-Af Amer) 48 L (60-130) mL/min BUN/Creatinine Ratio 28.4 H (9.0-21.6) Calcium 7.8 L (7.9-10.9) mg/dL AST 101 H (0-48) U/L ALT 84 H (19-67) U/L Alkaline Phosphatase 43 L (50-170) U/L Creatine Kinase 471 H (0-259) U/L Total Protein 6.0 L (6.2-8.2) gm/dL Albumin 1.7 L (3.4-5.0) gm/dl - Exam Constitutional: Present: Alert, Cooperative, Well developed, Well nourished, No distress, Obese ENT Exam: Present: hearing grossly normal Neck: Present: non-tender, supple, trachea midline. Absent: lymphadenopathy (R), lymphadenopathy (L) Respiratory: Present: lungs clear, no respiratory distress, no accessory muscle use, No wheezing. Absent: crackles, rhonchi Cardiovascular/Chest: Present: normal peripheral pulses, regular rate, rhythm, no murmur, chest tender - Right lower chest tender to palpation Abdomen: Present: Normal bowel sounds, soft, nontender Extremity: Present: normal range of motion, non-tender, lower extremity edema - Protective shoe on left foot, pedal edema - 1+ pitting, bilateral, other Skin Exam: Present: normal color, warm/dry Appearance: Present: appropriate appearance Eye contact: Present: cooperative, good eye contact Thoughts: Present: normal thought pattern, normal mood /affect Assessment/Plan Plan Narrative: 67-year-old male with a past medical history of diabetes mellitus type 2, CKD stage III, diabetic foot ulcer, diabetic polyneuropathy, hyperlipidemia, hypertension, morbid obesity presents status post fall. Patient's states he fell in the bathroom and lay there for several days because he was not able to get himself up and he did not have his phone with him. His niece found him on the bathroom floor and states he was likely on the floor for 2-1/2 days. In the emergency department he was found to have leukocytosis of 15,000, acute kidney injury, lactic acidosis, and elevated LFTs. Chest x-ray negative for acute process. CT head was negative for any acute intracranial processes. CT cervical spine was negative for fracture. Wound culture growing pseudomonas aeruginosa and group C strep., sensitive to cefepime. Blood culture positive for Haemophilus para/Aphrophilus sensitive pansensitive including cefuroxime. Cefepime is an adequate medication to treat both infections. Start cefepime 2 g every 12 hours. Day 5 of antibiotics, day 2 of cefepime. Plan is to send him home on ciprofloxacin and cefuroxime. He has been having difficulty getting in and out of bed without assistance. He did ambulate with a walker today. Physical therapy to evaluate him again to determine whether or not he can safely discharge home with home health aid. Continue Tylenol for right-sided chest pain. He agreed to obtain a rib x-ray today. - Problems/Diagnosis (1) Bacteremia Problem: Acute Narrative: Continue today's day 5 of 7. The Haemophilus was sensitive to the initial empiric antibiotic, ceftriaxone. He continues to be afebrile, white count has improved. (2) Sepsis Problem: Resolved Qualifiers: Sepsis type: sepsis due to unspecified organism Qualified Code(s): A41.9 - Sepsis, unspecified organism (3) Rhabdomyolysis Problem: Resolved Qualifiers: Rhabdomyolysis type: traumatic Encounter type: initial encounter Qualified Code(s): T79.6XXA - Traumatic ischemia of muscle, initial encounter (4) Diabetic foot ulcer Problem: Acute Qualifiers: Diabetic foot ulcer location: toe Diabetes mellitus type: type 2 Laterality: left Non-pressure ulcer stage: with fat layer exposed Qualified Code(s): E11.621 - Type 2 diabetes mellitus with foot ulcer; L97.522 - Non- pressure chronic ulcer of other part of left foot with fat layer exposed Narrative: Continue with antibiotics today's day 5. However today is day 2 of cefepime. The initial empiric antibiotic, ceftriaxone was not treating the Pseudomonas. Would appreciate Dr. Fischer's input regarding duration of antibiotics for his foot. Plan would be to send him home on ciprofloxacin. Continue wound care per Dr. Fischer. (5) Acute kidney injury superimposed on chronic kidney disease Problem: Resolved Narrative: Resolved renal function is at baseline. Discontinue IV fluids. (6) Cellulitis Problem: Ruled-out Qualifiers: Site of cellulitis of extremity: lower extremity Laterality: left (7) Diabetic polyneuropathy Problem: Chronic Qualifiers: Diabetes mellitus type: type 2 Qualified Code(s): E11.42 - Type 2 diabetes mellitus with diabetic polyneuropathy (8) Hypertension, essential Problem: Chronic (9) Type II diabetes mellitus Problem: Chronic Qualifiers: Diabetes mellitus assisted insulin use: without bed bug exterminator use Diabetes mellitus complication status: with kidney complications Diabetes mellitus complication detail: with chronic kidney disease Chronic kidney disease stage: stage 3 (moderate) Qualified Code(s): E11.22 - Type 2 diabetes mellitus with diabetic chronic kidney disease; N18.3 - Chronic kidney disease, stage 3 (moderate) (10) Elevated LFTs Problem: Acute (11) Right-sided chest wall pain Problem: Acute
[2018-08-16] MEDS: SENNOSIDES/DOCUSATE SODIUM 1 TAB TABLET PO SCH ×2 (11:50→21:04)
[2018-08-16] MEDS: ENOXAPARIN SODIUM 40 MG/0.4 ML SYRG SC SCH (14:58)
--- NOTE | 2018-08-16 16:53 | PN ---
Subjective - Date and Time Seen Date: 08/16/18 Time: 16:53 Subjective Narrative: Pt seen in bedside chair resting. States that he is feeling better today. Believes he may be going to a nursing facility for a short stay to get strength back prior to going home. His dressings to his left great toe have been changed by nursing staff through the weekend. Culture results showing growth of Pseudomonas, which is sensitive to his current antibiotic therapy. He is using a surgical shoe with all weightbearing as instructed. He denies any further concerns regarding his foot at this time. Objective - Review of Systems Generalized/Overall Review: Denies: Chills, Fever Cardiac: Reports: Edema Abdominal: Denies: Nausea, Vomiting Neurological: Reports: Numbness Skin: Reports: Other - left great toe ulceration - Vitals Vitals: Last Vital Signs Temp 38.0 C 08/16/18 14:07 Pulse 97 08/16/18 14:07 Resp 18 08/16/18 14:07 BP 145/54 08/16/18 14:07 Pulse Ox 100 08/16/18 14:07 - Abnormal Lab Findings Abnormal Lab Findings: Abnormal Lab Results 08/16/18 08/16/18 Range/Units 06:28 06:28 WBC 11.1 H (4.0-10.5) K/mm3 RBC 3.66 L (4.7-6.0) M/mm3 Hgb 10.4 L (13.5-18.0) gm/dL Hct 31.8 L (42.0-52.0) % RDW 14.9 H (11.5-14.0) % Neutrophils # (Manual) 7.5 H (1.3-6.0) K/mm3 Chloride 107 H (97-106) mmol/L Carbon Dioxide 19.9 L (24-32.6) mmol/L Anion Gap 16.1 H (6.8-13.8) mmol/L BUN 44 H (6-23) mg/dL Creatinine 1.55 H (0.4-1.4) mg/dL Est GFR (Non-Af Amer) 48 L (60-130) mL/min BUN/Creatinine Ratio 28.4 H (9.0-21.6) Calcium 7.8 L (7.9-10.9) mg/dL AST 101 H (0-48) U/L ALT 84 H (19-67) U/L Alkaline Phosphatase 43 L (50-170) U/L Creatine Kinase 471 H (0-259) U/L Total Protein 6.0 L (6.2-8.2) gm/dL Albumin 1.7 L (3.4-5.0) gm/dl - EKG/Xray Findings XRAY: foot Interpretation: Reviewed by me - Agree with findings in report, left foot xray - Exam Constitutional: Present: Alert, Oriented x3, Cooperative, No distress Extremity: Present: lower extremity edema Skin Exam: Present: other - Ulceration to the plantar IPJ of the left great toe measuring 1.3 x 0.8 x 0.7 cm. No tunneling or undermining. Loss of tissue to full thickness with exposure of subcutaneous fat layer. Base mostly red, granular. Surrounding tissue wth slight maceration, otherwise pink, intact. There is a minimal amount of serous drainage, slight malodor present. No exposed tendon or bone at this time, however bone is very close in proximity to the base of the ulceration. Neurologic: Present: sensory deficit Appearance: Present: appropriate appearance Eye contact: Present: cooperative Assessment/Plan - Problems/Diagnosis (1) Diabetic foot ulcer Problem: Chronic Qualifiers: Diabetic foot ulcer location: toe Diabetes mellitus type: type 2 Laterality: left Non-pressure ulcer stage: with fat layer exposed Qualified Code(s): E11.621 - Type 2 diabetes mellitus with foot ulcer; L97.522 - Non- pressure chronic ulcer of other part of left foot with fat layer exposed Narrative: Ulceration appears to have slight improvement from visit 3 days ago, with reduction in size. Will continue with current dressing changes with Aquacel Ag, dry gauze, and tape, changed daily. Foot to be washed with soap and water prior to new dressing application. Xrays reviewed with the patient. No immediate concern for bone infection at this time, however if his symptoms worsen, would advise MRI of the foot. Culture results reviewed with the patient, and bacteria growing are sensitive to current ABX. Can continue at this time. Consider possible switch to oral Levaquin on discharge. Agree with short placement in nursing facility for continued care until strong enough to go home. I believe this would also be best for care of his current ulceration, as I have treated this outpatient in my office in the past, but the patient does not follow up for care as directed, which is likely why it has worsened to the degree it was on admission. Will plan follow up care pending which facility he will be discharged to, as I do round at several local facilities. Can otherwise coordinate follow up in my office.
[2018-08-17 05:31] LABS: Hematocrit 32.6 % (42.0-52.0); Hemoglobin 10.5 gm/dL (13.5-18.0); Mean Cell Volume 86.7 fl (78-100); Mean Corpuscular Hemoglobin 27.9 pg (27-31); Mean Corpuscular Hgb Conc 32.2 g/dl (32-36); Mean Platelet Volume 10.1 fl (8-11.3); Neutrophil # 7.9 K/mm3 (1.3-6.0); Neutrophil % 61.8 % (42-75.0); Platelet Count 378 K/mm3 (150-450); Red Blood Count 3.76 M/mm3 (4.7-6.0); White Blood Count 12.8 K/mm3 (4.0-10.5)
[2018-08-17 05:44] LABS: Albumin * 1.8 gm/dl (3.4-5.0); Anion Gap 14.9 mmol/L (6.8-13.8); BUN/Creatinine Ratio 27.2 (9.0-21.6); Bilirubin, Total 0.5 mg/dL (0.0-1.1); Ca. Corrected For Albumin 9.6 mg/dL (8.4-10.2); Calcium * 8.2 mg/dL (7.9-10.9); Carbon Dioxide 20.5 mmol/L (24-32.6); Potassium 4.4 mmol/L (3.4-4.6); Total Protein 6.3 gm/dL (6.2-8.2)
[2018-08-17] MEDS: ACETAMINOPHEN 325 MG TABLET PO PRN ×3 (08:33→20:52)
[2018-08-17] MEDS: SENNOSIDES/DOCUSATE SODIUM 1 TAB TABLET PO SCH ×2 (08:34→20:52)
[2018-08-17] MEDS: GABAPENTIN 100 MG CAPSULE PO SCH ×2 (08:34→20:52)
[2018-08-17] MEDS: ASPIRIN 81 MG TABLET.DR PO SCH (08:34)
[2018-08-17] MEDS: ENALAPRIL MALEATE 20 MG TABLET PO SCH ×2 (08:35→20:53)
[2018-08-17] MEDS: glipiZIDE 10 MG TABLET PO SCH ×2 (08:38→20:52)
[2018-08-17] MEDS: CEFEPIME HCL 2 GM in DEXTROSE 5 % IN WATER 100 ML IV SCH ×4 (11:17→21:14)
--- NOTE | 2018-08-17 12:08 | PN ---
Subjective - Date and Time Seen Date: 08/17/18 Time: 09:55 Subjective Narrative: He states that he feels okay, continues to have right-sided chest pain. He knows he does have the rib fractures from the rib x-ray performed yesterday. Wants to continue with Tylenol for pain and no narcotics. Objective - Review of Systems Generalized/Overall Review: Denies: Chills, Fever EENTM: Denies: Eye Pain Respiratory: Denies: Shortness of Breath Cardiac: Reports: Chest Pain Abdominal: Denies: Abdominal Pain Misc: All systems neg except as marked - Vitals Vitals: Last Vital Signs Temp 36.9 C 08/17/18 11:28 Pulse 83 08/17/18 11:28 Resp 16 08/17/18 11:28 BP 155/67 H 08/17/18 11:28 Pulse Ox 98 08/17/18 11:28 - Abnormal Lab Findings Abnormal Lab Findings: Abnormal Lab Results 08/17/18 08/17/18 Range/Units 05:15 05:15 WBC 12.8 H (4.0-10.5) K/mm3 RBC 3.76 L (4.7-6.0) M/mm3 Hgb 10.5 L (13.5-18.0) gm/dL Hct 32.6 L (42.0-52.0) % RDW 15.0 H (11.5-14.0) % Immature Gran % (Auto) 9.70 H (0.001-0.429) % Immature Gran # (Auto) 1.24 H (0.000-0.0310) K/mm3 Lymphocytes % 15.7 L (20-51) % Eosinophils % 3.3 H (0.0-3.0) % Neutrophils # 7.9 H (1.3-6.0) K/mm3 Monocytes # 1.1 H (0.0-1.0) k/mm3 Chloride 109 H (97-106) mmol/L Carbon Dioxide 20.5 L (24-32.6) mmol/L Anion Gap 14.9 H (6.8-13.8) mmol/L BUN 40 H (6-23) mg/dL Creatinine 1.47 H (0.4-1.4) mg/dL Est GFR (Non-Af Amer) 51 L (60-130) mL/min BUN/Creatinine Ratio 27.2 H (9.0-21.6) Random Glucose 114 H (70-110) mg/dL AST 82 H (0-48) U/L ALT 83 H (19-67) U/L Albumin 1.8 L (3.4-5.0) gm/dl - Exam Constitutional: Present: Alert, Cooperative, Well developed, Well nourished, No distress, Obese ENT Exam: Present: hearing grossly normal, moist mucous membranes Neck: Present: supple, trachea midline. Absent: lymphadenopathy (R), lymphadenopathy (L) Respiratory: Present: lungs clear, no respiratory distress, no accessory muscle use, wheezing, No wheezing. Absent: crackles Cardiovascular/Chest: Present: normal peripheral pulses, regular rate, rhythm, no murmur Abdomen: Present: Normal bowel sounds, soft, nontender Extremity: Present: pedal edema - 2+ nonpitting bilateral lower extremity, other - Protective shoe in place on left foot Skin Exam: Present: normal color, warm/dry Neurologic: Present: alert, normal mood/affect Appearance: Present: appropriate appearance, appropriate insight Eye contact: Present: cooperative, good eye contact Thoughts: Present: normal thought pattern, normal mood /affect Assessment/Plan - Problems/Diagnosis (1) Bacteremia Problem: Acute (2) Sepsis Problem: Resolved Qualifiers: Sepsis type: sepsis due to unspecified organism Qualified Code(s): A41.9 - Sepsis, unspecified organism (3) Rhabdomyolysis Problem: Resolved Qualifiers: Rhabdomyolysis type: traumatic Encounter type: initial encounter Qualified Code(s): T79.6XXA - Traumatic ischemia of muscle, initial encounter (4) Diabetic foot ulcer Problem: Acute Qualifiers: Diabetic foot ulcer location: toe Diabetes mellitus type: type 2 Laterality: left Non-pressure ulcer stage: with fat layer exposed Qualified Code(s): E11.621 - Type 2 diabetes mellitus with foot ulcer; L97.522 - Non- pressure chronic ulcer of other part of left foot with fat layer exposed (5) Acute kidney injury superimposed on chronic kidney disease Problem: Resolved (6) Cellulitis Problem: Ruled-out Qualifiers: Site of cellulitis of extremity: lower extremity Laterality: left (7) Diabetic polyneuropathy Problem: Chronic Qualifiers: Diabetes mellitus type: type 2 Qualified Code(s): E11.42 - Type 2 diabetes mellitus with diabetic polyneuropathy (8) Hypertension, essential Problem: Chronic (9) Type II diabetes mellitus Problem: Chronic Qualifiers: Diabetes mellitus snf insulin use: without manager long term care use Diabetes mellitus complication status: with kidney complications Diabetes mellitus complication detail: with chronic kidney disease Chronic kidney disease stage: stage 3 (moderate) Qualified Code(s): E11.22 - Type 2 diabetes mellitus with diabetic chronic kidney disease; N18.3 - Chronic kidney disease, stage 3 (moderate) (10) Elevated LFTs Problem: Acute (11) Right-sided chest wall pain Problem: Acute Narrative: 67-year-old male with a past medical history of diabetes mellitus type 2, CKD stage III, diabetic foot ulcer, diabetic polyneuropathy, hyperlipidemia, hypertension, morbid obesity presents status post fall. Patient's states he fell in the bathroom and lay there for several days because he was not able to get himself up and he did not have his phone with him. His niece found him on the bathroom floor and states he was likely on the floor for 2-1/2 days. In the emergency department he was found to have leukocytosis of 15,000, acute kidney injury, lactic acidosis, and elevated LFTs. Chest x-ray negative for acute process. CT head was negative for any acute intracranial processes. CT cervical spine was negative for fracture. Wound culture growing pseudomonas aeruginosa and group C strep., sensitive to cefepime. Blood culture positive for Haemophilus para/Aphrophilus sensitive pansensitive including cefuroxime. Cefepime is an adequate medication to treat both infections. Start cefepime 2 g every 12 hours. Day 6 of antibiotics, day 3 of cefepime. Plan is to send him home on ciprofloxacin and cefuroxime. He has been having difficulty getting in and out of bed without assistance. He did ambulate with a walker today. Physical therapy to evaluate him again to determine whether or not he can safely discharge home with home health aid. Rib x-ray on August 16, 2017 shows nondisplaced anterior fractures of seventh and eighth rib possible posterior fracture on 10th rib. He declines any narcotics for pain and wants to continue with Tylenol. His family has encouraged him to go to a half-way on discharge in order to regain his strength. Awaiting authorization for placement.
[2018-08-17] MEDS: ENOXAPARIN SODIUM 40 MG/0.4 ML SYRG SC SCH (15:48)
[2018-08-18 05:58] LABS: Hematocrit 31.8 % (42.0-52.0); Hemoglobin 10.2 gm/dL (13.5-18.0); Mean Cell Volume 87.4 fl (78-100); Mean Corpuscular Hgb Conc 32.1 g/dl (32-36); Mean Platelet Volume 10.5 fl (8-11.3); Platelet Count 427 K/mm3 (150-450); Red Blood Count 3.64 M/mm3 (4.7-6.0); White Blood Count 13.7 K/mm3 (4.0-10.5)
[2018-08-18 06:00] LABS: Total Cells Counted 100
[2018-08-18 06:08] LABS: Albumin * 1.7 gm/dl (3.4-5.0); Anion Gap 14.2 mmol/L (6.8-13.8); BUN/Creatinine Ratio 23.2 (9.0-21.6); Bilirubin, Total 0.5 mg/dL (0.0-1.1); Ca. Corrected For Albumin 10.1 mg/dL (8.4-10.2); Calcium * 8.6 mg/dL (7.9-10.9); Carbon Dioxide 21.4 mmol/L (24-32.6); Potassium 4.6 mmol/L (3.4-4.6); Total Protein 6.4 gm/dL (6.2-8.2)
[2018-08-18 06:30] LABS: Band 1 % (0-2.0); Eosinophil 3 % (0-3); Immature Granulocyte 8 (0-1); Lymphocyte 11 % (20-51); Monocyte 7 % (0-9); Neutrophil 70 % (42-75); Neutrophil # 9.6 K/mm3 (1.3-6.0); Platelet Estimate Normal (NORMAL)
[2018-08-18 06:32] LABS: Dohle Bodies 1+; Toxic Granulation 2+
[2018-08-18] MEDS: ASPIRIN 81 MG TABLET.DR PO SCH (08:23)
[2018-08-18] MEDS: glipiZIDE 10 MG TABLET PO SCH ×2 (08:24→21:13)
[2018-08-18] MEDS: SENNOSIDES/DOCUSATE SODIUM 1 TAB TABLET PO SCH ×2 (08:24→21:14)
[2018-08-18] MEDS: GABAPENTIN 100 MG CAPSULE PO SCH ×2 (08:24→21:13)
[2018-08-18] MEDS: ENALAPRIL MALEATE 20 MG TABLET PO SCH ×2 (08:24→21:13)
[2018-08-18] MEDS: ACETAMINOPHEN 325 MG TABLET PO PRN ×2 (08:28→21:12)
--- NOTE | 2018-08-18 12:05 | PN ---
Subjective - Date and Time Seen Date: 08/18/18 Time: 11:30 Subjective Narrative: He states he feels well. Denies right-sided chest pain this morning. He complains of feeling tired. Objective Objective Narrative: He had one episode of fever last night. No new fevers. - Review of Systems Generalized/Overall Review: Denies: Chills, Fever Respiratory: Denies: Shortness of Breath Cardiac: Denies: Chest Pain Abdominal: Denies: Abdominal Pain Misc: All systems neg except as marked - Vitals Vitals: Last Vital Signs Temp 36.8 C 08/18/18 09:35 Pulse 82 08/18/18 09:35 Resp 16 08/18/18 09:35 BP 143/67 08/18/18 09:35 Pulse Ox 96 08/18/18 09:35 - Abnormal Lab Findings Abnormal Lab Findings: Abnormal Lab Results 08/18/18 08/18/18 Range/Units 05:08 05:08 WBC 13.7 H (4.0-10.5) K/mm3 RBC 3.64 L (4.7-6.0) M/mm3 Hgb 10.2 L (13.5-18.0) gm/dL Hct 31.8 L (42.0-52.0) % RDW 15.0 H (11.5-14.0) % Lymphocytes % (Manual) 11 L (20-51) % Immature Granulocytes 8 H (0-1) Neutrophils # (Manual) 9.6 H (1.3-6.0) K/mm3 Chloride 109 H (97-106) mmol/L Carbon Dioxide 21.4 L (24-32.6) mmol/L Anion Gap 14.2 H (6.8-13.8) mmol/L BUN 33 H (6-23) mg/dL Creatinine 1.42 H (0.4-1.4) mg/dL Est GFR (Non-Af Amer) 53 L (60-130) mL/min BUN/Creatinine Ratio 23.2 H (9.0-21.6) AST 65 H (0-48) U/L ALT 72 H (19-67) U/L Albumin 1.7 L (3.4-5.0) gm/dl - Exam Constitutional: Present: Alert, Cooperative, Well developed, Well nourished, No distress, Obese ENT Exam: Present: hearing grossly normal Neck: Present: supple, trachea midline. Absent: lymphadenopathy (R), lymphadenopathy (L) Respiratory: Present: lungs clear, no respiratory distress, no accessory muscle use, No wheezing. Absent: crackles, rhonchi Cardiovascular/Chest: Present: normal peripheral pulses, regular rate, rhythm, no murmur Abdomen: Present: Normal bowel sounds, soft, nontender Extremity: Present: lower extremity edema - 2+ bilateral lower extremities. Skin Exam: Present: warm/dry Neurologic: Present: alert, normal mood/affect Appearance: Present: appropriate appearance Eye contact: Present: cooperative Thoughts: Present: normal thought pattern, normal mood /affect - 1 Assessment/Plan Plan Narrative: 67-year-old male with a past medical history of diabetes mellitus type 2, CKD stage III, diabetic foot ulcer, diabetic polyneuropathy, hyperlipidemia, hypertension, morbid obesity presents status post fall. Patient's states he fell in the bathroom and lay there for several days because he was not able to get himself up and he did not have his phone with him. His niece found him on the bathroom floor and states he was likely on the floor for 2-1/2 days. In the emergency department he was found to have leukocytosis of 15,000, acute kidney injury, lactic acidosis, and elevated LFTs. Chest x-ray negative for acute process. CT head was negative for any acute intracranial processes. CT cervical spine was negative for fracture. Wound culture growing pseudomonas aeruginosa and group C strep., sensitive to cefepime. Blood culture positive for Haemophilus para/Aphrophilus sensitive pansensitive including cefuroxime. Cefepime is an adequate medication to treat both infections. Start cefepime 2 g every 12 hours. Day 7 of antibiotics, day 4 of cefepime. Plan is to send him home on ciprofloxacin or levaquin and cefuroxime. Rib x-ray on August 16, 2017 shows nondisplaced anterior fractures of seventh and eighth rib possible posterior fracture on 10th rib. He declines any narcotics for pain and wants to continue with Tylenol. His leukocytosis is uptrending. He did have one fever last night but no new fevers. Unclear where the etiology of the leukocytosis is from. Clinically he appears better and feels better than when he presented. He may potentially have a gram-positive organism in his wound that do not grow out on culture. We will start him on Bactrim double strength twice a day a 4 10 to cover for gram- positive. This is sufficient for the bacteremia per the culture and sensitivity. Since he has lost IV access today. I will transition him to all oral meds. Discontinue cefepime and start him on Levaquin 750 mg daily, day 4 of I will keep him 1 more night to make sure he is 24 hours without a fever Prior to discharge. Physical therapy has reevaluated him and. Feels he is walking well with a walker and is stable for discharge home. - Problems/Diagnosis (1) Bacteremia Problem: Acute Narrative: Continue with cefepime. (2) Sepsis Problem: Resolved Qualifiers: Sepsis type: sepsis due to unspecified organism Qualified Code(s): A41.9 - Sepsis, unspecified organism (3) Rhabdomyolysis Problem: Resolved Qualifiers: Rhabdomyolysis type: traumatic Encounter type: initial encounter Qualified Code(s): T79.6XXA - Traumatic ischemia of muscle, initial encounter (4) Diabetic foot ulcer Problem: Chronic Qualifiers: Diabetic foot ulcer location: toe Diabetes mellitus type: type 2 Laterality: left Non-pressure ulcer stage: with fat layer exposed Qualified Code(s): E11.621 - Type 2 diabetes mellitus with foot ulcer; L97.522 - Non- pressure chronic ulcer of other part of left foot with fat layer exposed (5) Acute kidney injury superimposed on chronic kidney disease Problem: Resolved (6) Cellulitis Problem: Ruled-out Qualifiers: Site of cellulitis of extremity: lower extremity Laterality: left (7) Diabetic polyneuropathy Problem: Chronic Qualifiers: Diabetes mellitus type: type 2 Qualified Code(s): E11.42 - Type 2 diabetes mellitus with diabetic polyneuropathy (8) Hypertension, essential Problem: Chronic (9) Type II diabetes mellitus Problem: Chronic Qualifiers: Diabetes mellitus detention insulin use: without detention use Diabetes mellitus complication status: with kidney complications Diabetes mellitus complication detail: with chronic kidney disease Chronic kidney disease stage: stage 3 (moderate) Qualified Code(s): E11.22 - Type 2 diabetes mellitus with diabetic chronic kidney disease; N18.3 - Chronic kidney disease, stage 3 (moderate) (10) Elevated LFTs Problem: Acute (11) Right-sided chest wall pain Problem: Acute (12) Leukocytosis Problem: Acute Narrative: White count is up trending. Unclear etiology. He did spike one fever last night but no new fever since.
[2018-08-18] MEDS: CEFEPIME HCL 2 GM in DEXTROSE 5 % IN WATER 100 ML IV SCH ×2 (12:27)
[2018-08-18] MEDS: LEVOFLOXACIN 750 MG TABLET PO SCH (14:35)
[2018-08-18] MEDS: ENOXAPARIN SODIUM 40 MG/0.4 ML SYRG SC SCH (14:35)
[2018-08-18] MEDS: SULFAMETHOXAZOLE/TRIMETHOPRIM 1 TAB TABLET PO SCH (21:13)
[2018-08-19 05:58] LABS: Hemoglobin 9.9 gm/dL (13.5-18.0); Mean Cell Volume 86.8 fl (78-100); Mean Corpuscular Hemoglobin 27.7 pg (27-31); Mean Corpuscular Hgb Conc 31.9 g/dl (32-36); Platelet Count 458 K/mm3 (150-450); Red Blood Count 3.57 M/mm3 (4.7-6.0); Red Cell Distribution Width 14.9 % (11.5-14.0); White Blood Count 13.5 K/mm3 (4.0-10.5)
[2018-08-19 05:59] LABS: Total Cells Counted 100
[2018-08-19 06:26] LABS: Albumin * 1.7 gm/dl (3.4-5.0); Anion Gap 13.8 mmol/L (6.8-13.8); BUN/Creatinine Ratio 21.1 (9.0-21.6); Bilirubin, Total 0.4 mg/dL (0.0-1.1); Ca. Corrected For Albumin 10.4 mg/dL (8.4-10.2); Calcium * 8.9 mg/dL (7.9-10.9); Carbon Dioxide 22.8 mmol/L (24-32.6); Potassium 4.6 mmol/L (3.4-4.6); Total Protein 6.4 gm/dL (6.2-8.2)
[2018-08-19 06:47] LABS: Band 5 % (0-2.0); Eosinophil 4 % (0-3); Immature Granulocyte 4 (0-1); Lymphocyte 17 % (20-51); Monocyte 5 % (0-9); Neutrophil 65 % (42-75); Neutrophil # 8.8 K/mm3 (1.3-6.0)
[2018-08-19 06:48] LABS: Platelet Estimate Increased (NORMAL)
[2018-08-19 06:49] LABS: Hypochromia 1+; Toxic Granulation 2+
[2018-08-19 06:50] LABS: Dohle Bodies Trace
[2018-08-19] MEDS: glipiZIDE 10 MG TABLET PO SCH (08:08)
[2018-08-19] MEDS: SULFAMETHOXAZOLE/TRIMETHOPRIM 1 TAB TABLET PO SCH (08:08)
[2018-08-19] MEDS: GABAPENTIN 100 MG CAPSULE PO SCH (08:08)
[2018-08-19] MEDS: ENALAPRIL MALEATE 20 MG TABLET PO SCH (08:08)
[2018-08-19] MEDS: ASPIRIN 81 MG TABLET.DR PO SCH (08:08)
[2018-08-19] MEDS: SENNOSIDES/DOCUSATE SODIUM 1 TAB TABLET PO SCH (08:08)
--- NOTE | 2018-08-19 08:58 | DS ---
(1) Bacteremia Problem: Acute (2) Sepsis Problem: Resolved Qualifiers: Sepsis type: sepsis due to unspecified organism Qualified Code(s): A41.9 - Sepsis, unspecified organism (3) Rhabdomyolysis Problem: Resolved Qualifiers: Rhabdomyolysis type: traumatic Encounter type: initial encounter Qualified Code(s): T79.6XXA - Traumatic ischemia of muscle, initial encounter (4) Diabetic foot ulcer Problem: Chronic Qualifiers: Diabetic foot ulcer location: toe Diabetes mellitus type: type 2 Laterality: left Non-pressure ulcer stage: with fat layer exposed Qualified Code(s): E11.621 - Type 2 diabetes mellitus with foot ulcer; L97.522 - Non- pressure chronic ulcer of other part of left foot with fat layer exposed (5) Acute kidney injury superimposed on chronic kidney disease Problem: Resolved (6) Cellulitis Problem: Ruled-out Qualifiers: Site of cellulitis of extremity: lower extremity Laterality: left (7) Diabetic polyneuropathy Problem: Chronic Qualifiers: Diabetes mellitus type: type 2 Qualified Code(s): E11.42 - Type 2 diabetes mellitus with diabetic polyneuropathy (8) Hypertension, essential Problem: Chronic (9) Type II diabetes mellitus Problem: Chronic Qualifiers: Diabetes mellitus termite exterminator insulin use: without termite exterminator use Diabetes mellitus complication status: with kidney complications Diabetes mellitus complication detail: with chronic kidney disease Chronic kidney disease stage: stage 3 (moderate) Qualified Code(s): E11.22 - Type 2 diabetes mellitus with diabetic chronic kidney disease; N18.3 - Chronic kidney disease, stage 3 (moderate) (10) Elevated LFTs Problem: Acute (11) Right-sided chest wall pain Problem: Acute (12) Leukocytosis Problem: Acute Description of Stay: 7-year-old male with a past medical history of diabetes mellitus type 2, CKD stage III, diabetic foot ulcer, diabetic polyneuropathy, hyperlipidemia, hypertension, morbid obesity presents status post fall. Patient's states he fell in the bathroom and lay there for several days because he was not able to get himself up and he did not have his phone with him. His niece found him on the bathroom floor and states he was likely on the floor for 2-1/2 days. In the emergency department he was found to have leukocytosis of 15,000, acute kidney injury, lactic acidosis, and elevated LFTs. Chest x-ray negative for acute process. CT head was negative for any acute intracranial processes. CT cervical spine was negative for fracture. Wound culture growing pseudomonas aeruginosa and group C strep., sensitive to cefepime. Blood culture positive for Haemophilus para/Aphrophilus sensitive pansensitive including cefuroxime. Cefepime is an adequate medication to treat both infections. Start cefepime 2 g every 12 hours. Day 7 of antibiotics, day 4 of cefepime. Plan is to send him home on ciprofloxacin or levaquin and cefuroxime. Rib x-ray on August 16, 2017 shows nondisplaced anterior fractures of seventh and eighth rib possible posterior fracture on 10th rib. He declines any narcotics for pain and wants to continue with Tylenol. His leukocytosis is has started downtrending. We can repeat CBC as an outpatient to check for resolution. No new fevers. He may potentially have a gram-positive organism in his wound that do not grow out on culture. We will start him on Bactrim double strength twice a day a of 10 to cover for any potentially missed gram-positive organism in the left foot ulcer. Bactrim is sufficient for the bacteremia per the culture and sensitivity. Continue with Bactrim and Levaquin day 5 of 10. Physical therapy has reevaluated him and feels he is walking well with a walker and is stable for discharge home. Antonio Marie is confined to the home due to infected diabetic ulcer, weakness, deconditioning, unstable gait. The need for [place] [facility] is for medication education and management due to new meds, and wound care, and monitoring of healing. The need for physical therapy is for strengthening, endurance, gait and balance issues, mobility issues, ADL teaching to be safe. The need for home health care skilled services is directly related time spent [id number] with the person. He will need a walker due to diabetic ulcer, weakness and unsteady gait. Procedures Performed: none Results and Findings: Lab Pending Results 08/13/18 09:05: WBC 15.3 H, RBC 4.73, Hgb 13.0 L, Hct 40.1 L, MCV 84.8, MCH 27.5, MCHC 32.4, RDW 14.0, Plt Count 295, MPV 11.4 H, Immature Gran % (Auto) 0.60 H, Immature Gran # (Auto) 0.09 H, Neutrophils % 89.8 H, Lymphocytes % 3.6 L, Monocytes % 5.9, Eosinophils % 0.0, Basophils % 0.1, Nucleated RBC % 0.0, Neutrophils # 13.8 H, Lymphocytes # 0.55 L, Monocytes # 0.9, Eosinophils # 0.0, Absolute Basophils 0.0 08/13/18 09:05: Sodium 135, Plasma Sodium 137, Potassium 4.3, Chloride 98, Carbon Dioxide 20.4 L, Anion Gap 20.9 H, BUN 55 H D, Creatinine 2.19 H D, Est GFR (Non-Af Amer) 32 L D, BUN/Creatinine Ratio 25.1 H, Random Glucose 229 H, Calcium 9.1, Calcium Adj for Albumin 10.0, Total Bilirubin 0.9, AST 322 H, ALT 131 H, Alkaline Phosphatase 49 L, Creatine Kinase 7237 H, Total Protein 7.9, Albumin 2.5 L, Ethyl Alcohol Less than 3.0 08/13/18 09:05: Lactic Acid, Venous 2.3 H* 08/13/18 09:54: Urine Color Dark yellow, Urine Appearance Cloudy, Urine pH 5.5, Ur Specific Blair 1.025, Urine Protein 100 H, Urine Glucose (UA) Negative, Urine Ketones 15, Urine Blood 250 H, Urine Nitrate Negative, Urine Bilirubin 1 H, Urine Ictotest Negative, Prot Sulfosalicylic Acd 4+ H, Urine Urobilinogen Normal, Ur Leukocyte Esterase Negative, Urine RBC None seen, Urine WBC 0-5, Ur Epithelial Cells 0-5, Amorphous Sediment Moderate - 2+ H, Urine Bacteria 1+ H, Urine Mucus Moderate - 2+ H, Urine Culture Comments No culture indicated 08/13/18 12:00: Lactic Acid, Venous 1.7 08/14/18 06:20: Sodium 138, Plasma Sodium 138, Potassium 3.9, Chloride 105, Carbon Dioxide 21.5 L, Anion Gap 15.4 H, BUN 58 H, Creatinine 2.00 H, Est GFR (Non-Af Amer) 35 L, BUN/Creatinine Ratio 29.0 H, Random Glucose 125 H D, Calcium 7.8 L, Calcium Adj for Albumin 9.2, Total Bilirubin 0.6, AST 207 H, ALT 103 H, Alkaline Phosphatase 42 L, Creatine Kinase 3416 H, Total Protein 6.3, Albumin 1.9 L 08/14/18 06:20: WBC 11.6 H D, RBC 3.97 L, Hgb 11.2 L, Hct 33.5 L, MCV 84.4, MCH 28.2, MCHC 33.4, RDW 14.4 H, Plt Count 252, MPV 10.5, Immature Gran % (Auto) 1.00 H, Immature Gran # (Auto) 0.12 H, Neutrophils % 76.7 H, Lymphocytes % 13.2 L, Monocytes % 8.5, Eosinophils % 0.3, Basophils % 0.3, Nucleated RBC % 0.0, Neutrophils # 8.9 H, Lymphocytes # 1.53, Monocytes # 1.0, Eosinophils # 0.0, Absolute Basophils 0.0 08/15/18 05:40: WBC 10.8 H, RBC 3.81 L, Hgb 10.6 L, Hct 32.7 L, MCV 85.8, MCH 27.8, MCHC 32.4, RDW 14.7 H, Plt Count 291, MPV 10.9, Immature Gran % (Auto) 3.20 H, Immature Gran # (Auto) 0.34 H, Neutrophils % 72.8, Lymphocytes % 12.3 L, Monocytes % 9.6 H, Eosinophils % 1.6, Basophils % 0.5, Nucleated RBC % 0.0, Neutrophils # 7.8 H, Lymphocytes # 1.32 L, Monocytes # 1.0, Eosinophils # 0.2, Absolute Basophils 0.1 08/15/18 05:40: Sodium 137, Plasma Sodium 138, Potassium 4.0, Chloride 105, Carbon Dioxide 20.0 L, Anion Gap 16.0 H, BUN 53 H, Creatinine 1.68 H, Est GFR (Non-Af Amer) 43 L D, BUN/Creatinine Ratio 31.5 H, Random Glucose 146 H, Calcium 7.8 L, Calcium Adj for Albumin 9.2, Total Bilirubin 0.4, AST 141 H, ALT 95 H, Alkaline Phosphatase 41 L, Creatine Kinase 1314 H, Total Protein 6.2, Albumin 1.8 L 08/16/18 06:28: WBC 11.1 H, RBC 3.66 L, Hgb 10.4 L, Hct 31.8 L, MCV 86.9, MCH 28.4, MCHC 32.7, RDW 14.9 H, Plt Count 312, MPV 10.4, Neutrophils % (Manual) 68, Band Neuts % (Manual) 1, Lymphocytes % (Manual) 23, Monocytes % (Manual) 5, Eosinophils % (Manual) 3, Neutrophils # (Manual) 7.5 H, Lymphocytes # (Manual) 2.6, Monocytes # (Manual) 0.6, Eosinophils # (Manual) 0.3, Platelet Estimate Normal, RBC Morphology Normal 08/16/18 06:28: Sodium 139, Plasma Sodium 139, Potassium 4.0, Chloride 107 H, Carbon Dioxide 19.9 L, Anion Gap 16.1 H, BUN 44 H, Creatinine 1.55 H, Est GFR (Non-Af Amer) 48 L, BUN/Creatinine Ratio 28.4 H, Random Glucose 102 D, Calcium 7.8 L, Calcium Adj for Albumin 9.3, Total Bilirubin 0.5, AST 101 H, ALT 84 H, Alkaline Phosphatase 43 L, Creatine Kinase 471 H, Total Protein 6.0 L, Albumin 1.7 L 08/17/18 05:15: WBC 12.8 H, RBC 3.76 L, Hgb 10.5 L, Hct 32.6 L, MCV 86.7, MCH 27.9, MCHC 32.2, RDW 15.0 H, Plt Count 378, MPV 10.1, Immature Gran % (Auto) 9.70 H, Immature Gran # (Auto) 1.24 H, Neutrophils % 61.8, Lymphocytes % 15.7 L, Monocytes % 8.6, Eosinophils % 3.3 H, Basophils % 0.9, Nucleated RBC % 0.0, Neutrophils # 7.9 H, Lymphocytes # 2.01, Monocytes # 1.1 H, Eosinophils # 0.4, Absolute Basophils 0.1 08/17/18 05:15: Sodium 140, Plasma Sodium 140, Potassium 4.4, Chloride 109 H, Carbon Dioxide 20.5 L, Anion Gap 14.9 H, BUN 40 H, Creatinine 1.47 H, Est GFR (Non-Af Amer) 51 L, BUN/Creatinine Ratio 27.2 H, Random Glucose 114 H, Calcium 8.2, Calcium Adj for Albumin 9.6, Total Bilirubin 0.5, AST 82 H, ALT 83 H, Alkaline Phosphatase 61, Total Protein 6.3, Albumin 1.8 L 08/18/18 05:08: WBC 13.7 H, RBC 3.64 L, Hgb 10.2 L, Hct 31.8 L, MCV 87.4, MCH 28.0, MCHC 32.1, RDW 15.0 H, Plt Count 427, MPV 10.5, Neutrophils % (Manual) 70, Band Neuts % (Manual) 1, Lymphocytes % (Manual) 11 L, Monocytes % (Manual) 7, Eosinophils % (Manual) 3, Immature Granulocytes 8 H, Neutrophils # (Manual) 9.6 H, Lymphocytes # (Manual) 1.5, Monocytes # (Manual) 1.0, Eosinophils # (Manual) 0.4, Toxic Granulation 2+, Toxic Vacuolation 1+, Dohle Bodies 1+, Platelet Estimate Normal 08/18/18 05:08: Sodium 140, Plasma Sodium 140, Potassium 4.6, Chloride 109 H, Carbon Dioxide 21.4 L, Anion Gap 14.2 H, BUN 33 H, Creatinine 1.42 H, Est GFR (Non-Af Amer) 53 L, BUN/Creatinine Ratio 23.2 H, Random Glucose 92, Calcium 8.6, Calcium Adj for Albumin 10.1, Total Bilirubin 0.5, AST 65 H, ALT 72 H, Alkaline Phosphatase 59, Total Protein 6.4, Albumin 1.7 L 08/19/18 05:50: WBC 13.5 H, RBC 3.57 L, Hgb 9.9 L, Hct 31.0 L, MCV 86.8, MCH 27.7, MCHC 31.9 L, RDW 14.9 H, Plt Count 458 H, MPV 10.0, Neutrophils % (Manual) 65, Band Neuts % (Manual) 5 H, Lymphocytes % (Manual) 17 L, Monocytes % (Manual) 5, Eosinophils % (Manual) 4 H, Immature Granulocytes 4 H, Neutrophils # (Manual) 8.8 H, Lymphocytes # (Manual) 2.3, Monocytes # (Manual) 0.7, Eosinophils # (Manual) 0.5, Toxic Granulation 2+, Toxic Vacuolation 1+, Dohle Bodies Trace, Platelet Estimate Increased H, Hypochromasia 1+ 08/19/18 05:50: Sodium 139, Plasma Sodium 139, Potassium 4.6, Chloride 107 H, Carbon Dioxide 22.8 L, Anion Gap 13.8, BUN 30 H, Creatinine 1.42 H, Est GFR (Non-Af Amer) 53 L, BUN/Creatinine Ratio 21.1, Random Glucose 75, Calcium 8.9, Calcium Adj for Albumin 10.4 H, Total Bilirubin 0.4, AST 57 H, ALT 64, Alkaline Phosphatase 57, Total Protein 6.4, Albumin 1.7 L Discharge Location: Home Disposition: Home Health Service [facility] Agency: [facility] Home Health Condition: Fair Discharge Activity: Activity as tolerated Discharge Diet: Consistent carbs Referrals: Ella Inman MD [Primary Care Provider] - Problem Oriented Discharge Instructions to Patient/Family: Diabetes and Foot Care, Cellulitis, Adult, [id number] Additional Patient Instructions (free text): Needs order for glucometer at discharge Please make TCM appointment unless care home discharge. Thank you! Rita @ [phone]. Please fax home health referral and discharge information to [facility] at discharge. Call referral to [phone] and call report. Daily dressing change: Wash left great toe with soap and water, pat dry, apply Aquacel Ag, dry gauze, and tape. Prescriptions (Any new or edited meds): Sulfamethoxazole/Trimethoprim [Bactrim Ds] 1 tab PO BID #12 tab Levofloxacin [Levaquin] 750 mg PO DAILY@1100 #6 tab Complete Home Medications List: Complete Home Medication List: aspirin 81 mg tablet,delayed release 81 mg PO DAILY 09/29/17 benazepril 20 mg tablet 20 mg PO BID #180 tab 01/12/18 glipizide 10 mg tablet 10 mg PO BID #180 tab 01/12/18 metformin 1,000 mg tablet 1,000 mg PO BID #180 tab 01/12/18 gabapentin 100 mg capsule 100 mg PO BID #60 cap 06/17/18 furosemide 20 mg tablet 20 mg PO DAILY #3 tab 07/20/18 Levofloxacin [Levaquin] 750 mg PO DAILY@1100 #6 tab 08/19/18 Sulfamethoxazole/Trimethoprim [Bactrim Ds] 1 tab PO BID #12 tab 08/19/18
[2018-08-19] MEDS: LEVOFLOXACIN 750 MG TABLET PO SCH (11:06)
[2018-08-19 15:16] VITALS: BP 139/65
[2018-08-19] MEDS: ENOXAPARIN SODIUM 40 MG/0.4 ML SYRG SC SCH (15:53)
== END 2018-08-19 16:02 | disposition home health service (06) | DRG 854 ==
LOC: ER 08:36 → MS 10:47
PROVIDERS: ADMIT Internal Medicine; ATTEND Internal Medicine
DX: R41.82 Altered mental status, unspecified; S22.41XA Multiple fractures of ribs, right side, initial encounter for closed fracture; Z79.4 Long term (current) use of insulin; Z68.35 Body mass index [BMI] 35.0-35.9, adult; E11.22 Type 2 diabetes mellitus with diabetic chronic kidney disease; T79.6XXA Traumatic ischemia of muscle, initial encounter; Y92.012 Bathroom of single-family (private) house as the place of occurrence of the external cause; W18.30XA Fall on same level, unspecified, initial encounter; B96.5 Pseudomonas (aeruginosa) (mallei) (pseudomallei) as the cause of diseases classified elsewhere; I12.9 Hypertensive chronic kidney disease with stage 1 through stage 4 chronic kidney disease, or unspecified chronic kidney disease; L03.032 Cellulitis of left toe; E11.42 Type 2 diabetes mellitus with diabetic polyneuropathy; E66.01 Morbid (severe) obesity due to excess calories; N17.9 Acute kidney failure, unspecified; N18.3 Chronic kidney disease, stage 3 (moderate); R94.5 Abnormal results of liver function studies; A41.89 Other specified sepsis; L97.509 Non-pressure chronic ulcer of other part of unspecified foot with unspecified severity; Z91.81 History of falling; L97.522 Non-pressure chronic ulcer of other part of left foot with fat layer exposed
CPT/HCPCS: 36415; 70450; 71010; 71045; 71100; 72125; 73630; 80053; 80320; 81001; 82550; 83605; 85007; 85025; 87040; 87070; 87077; 87081; 87184; 87186; 93005; 94762; 96361; 96365; 97110; 97116; 97162; 97530; 99285; G0481

== ENCOUNTER 2018-08-24 18:33 | Inpatient (IN) ==
--- NOTE | 2018-08-24 19:10 | ERNOTE ---
Medical Problem HPI - Narrative Date of Service: 08/24/18 - General Chief Complaint: Diabetes Related Problem Time Seen by Provider: 08/24/18 18:49 Source: patient, family, RN notes reviewed, old records Exam Limitations: clinical condition - Immun/Allergies/Home Medications Immunizations: IMMUNIZATION HX Immunizations Up to Date No Allergies/Adverse Reactions: Allergies cat dander Allergy (Intermediate, Verified 08/13/18 15:23) Swelling (Other) 01/12/2013 Home Medications: HOME MEDICATIONS aspirin 81 mg tablet,delayed release 81 mg PO DAILY 09/29/17 [Last Taken Unknown] benazepril 20 mg tablet 20 mg PO BID #180 tab 01/12/18 [Last Taken Unknown] glipizide 10 mg tablet 10 mg PO BID #180 tab 01/12/18 [Last Taken Unknown] metformin 1,000 mg tablet 1,000 mg PO BID #180 tab 01/12/18 [Last Taken Unknown] gabapentin 100 mg capsule 100 mg PO BID #60 cap 06/17/18 [Last Taken Unknown] furosemide 20 mg tablet 20 mg PO DAILY #3 tab 07/20/18 [Last Taken Unknown] Levofloxacin [Levaquin] 750 mg PO DAILY@1100 #6 tab 08/19/18 [Last Taken Unknown] Sulfamethoxazole/Trimethoprim [Bactrim Ds] 1 tab PO BID #12 tab 08/19/18 [Last Taken Unknown] Multivitamin [Multivitamins] 1 tab PO DAILY 08/24/18 [Last Taken Unknown] - History of Present History Narrative: Antonio is a 67 year old male brought to the ED by ambulance after being found in a confused state at home with a blood glucose of 38. This improved with D50 at the scene. He was discharged from the hospital on 08/19 after being admitted on 08/13 for sepsis, cellulitis and rhabdomylosis. He had apparently fallen and had been on the floor between his toilet and the wall for over 2 days. He has a diabetic ulcer on the bottom of the left great toe that was growing pseudomonas. He also had positive blood cultures. His brother and sister in law report that he has not been doing anything since discharge but sitting in his chair, aside from the times he has been on the floor from falling. He fell earlier this morning and required several family members to help him up. He is wearing the same clothes he was discharged from the hospital in and appears very disheveled, but claims to have showered yesterday. His family also reports that he is hardly eating. Review of Systems - Narrative Narrative: Unable to obtain ROS d/t patient condition Medical History (Updated 08/20/18 @ 11:10 by Ella Inmna MD) Type II diabetes mellitus (Chronic) Diabetic foot ulcer (Chronic) Diabetes mellitus, type II (Chronic) Onset Date: 04/08/16 Diabetic polyneuropathy (Chronic) Onset Date: 10/14/12 Morbid obesity with BMI of 40.0-44.9, adult (Chronic) Onset Date: 10/21/16 Hyperlipidemia (Chronic) Onset Date: 04/08/16 Hypertension, essential (Chronic) Onset Date: 04/08/16 CKD (chronic kidney disease) stage 3, GFR 30-59 ml/min (Chronic) Onset Date: 08/04/16 Influenza vaccine refused Patient does not want to receive. 12/31/17 Surgical History: Surgical History (Updated 08/13/18 @ 14:32 by Ella Inman MD) Cataract Onset Date: 2011 Colonoscopy refused Onset Date: 01/15/17 History of tonsillectomy Onset Date: 1955 Family History: Family History (Updated 09/29/17 @ 13:43 by Jigna Hinton LPN) Father Cancer Liver cancer Mother Cancer colon cancer Social History: Preferred Language [place] Do you have any jewish or No cultural preference? Smoking Status Former smoker (Last Updated 07/19/18 @ 12:22 by Ella Inman MD) No Social History Section defined Physical Exam - Physical Exam General Appearance: Present: alert, mild distress, obese, other - dirty, disheveled, incontinent of urine Head Exam: Present: normal inspection Respiratory: Present: no respiratory distress, normal breath sounds, no accessory muscle use, lungs clear Cardiovascular/Chest: Present: no murmur, tachycardia Peripheral Pulses: N=norm/S=strong/W=weak/B=bound/A=absent: Dorsalis-pedis (R): Weak, Dorsalis-pedis (L): Weak Gastrointestinal/Abdominal: Present: nontender, nondistended, soft Extremity Exam: Present: pedal edema - moderate bilateral. Absent: joint redness, joint swelling Neurological Exam: Present: alert, oriented - at times. Absent: normal mood/affect Skin Exam: Present: warm/dry, pallor, other - erythema to bilateral lower legs, ulcer to bottom of left great toe Progress - Results and Orders Patient's Lab Results:: I have reviewed the patient's lab results. - Vital Signs Patient's Vital Signs:: I have reviewed the patient's vital signs. Vital Signs: Vital Signs 08/24/18 18:38 Temperature 36.8 C Pulse Rate 110 H Respiratory Rate 18 Blood Pressure 139/93 H O2 Sat by Pulse Oximetry 100 - Progress/Reassessment Chief Complaint: Diabetes Related Problem Progress:: Improved Departure Clinical Impression: Failure of outpatient treatment, Adult failure to thrive Acute renal failure Qualifiers: Acute renal failure type: unspecified Qualified Code(s): N17.9 - Acute kidney failure, unspecified Cellulitis Qualifiers: Site of cellulitis: extremity Site of cellulitis of extremity: lower extremity Laterality: unspecified laterality Qualified Code(s): L03.119 - Cellulitis of unspecified part of limb - Departure Disposition: Still a patient Condition: Poor
[2018-08-24 19:25] LABS: Hematocrit 35.8 % (42.0-52.0); Hemoglobin 11.4 gm/dL (13.5-18.0); Mean Cell Volume 87.5 fl (78-100); Mean Corpuscular Hemoglobin 27.9 pg (27-31); Mean Corpuscular Hgb Conc 31.8 g/dl (32-36); Mean Platelet Volume 9.1 fl (8-11.3); Neutrophil # 12.3 K/mm3 (1.3-6.0); Neutrophil % 83.5 % (42-75.0); Platelet Count 590 K/mm3 (150-450); Red Blood Count 4.09 M/mm3 (4.7-6.0); Red Cell Distribution Width 14.7 % (11.5-14.0); White Blood Count 14.8 K/mm3 (4.0-10.5)
[2018-08-24 19:39] LABS: Albumin * 2.3 gm/dl (3.4-5.0); Anion Gap 17.4 mmol/L (6.8-13.8); Bilirubin, Total 0.3 mg/dL (0.0-1.1); Ca. Corrected For Albumin 10.5 mg/dL (8.4-10.2); Calcium * 9.5 mg/dL (7.9-10.9); Carbon Dioxide 21.3 mmol/L (24-32.6); Potassium 5.7 mmol/L (3.4-4.6); Total Protein 7.5 gm/dL (6.2-8.2)
[2018-08-24] MEDS ORDERED: NORMAL SALINE 1,000 ML IV ONE (20:02)
[2018-08-24 20:07] LABS: Urine Bilirubin Negative (NEGATIVE); Urine Ketone Negative (NEGATIVE); Urine Nitrite Negative (NEGATIVE); Urine Protein 30 mg/dL (NEGATIVE); Urine Specific Gravity >=1.030 SP.GR. (1.005-1.030); Urine Urobilinogen Normal (NORMAL); Urine pH 5.5 pH (5.0-7.0)
[2018-08-24 20:14] LABS: Urine Appearance Clear (CLEAR); Urine Bacteria 1+; Urine Blood 5 /ul (NEGATIVE); Urine Color Yellow; Urine Mucus Few - 1+; Urine RBC None Seen /hpf (0-5); Urine WBC None Seen /hpf (0-5)
[2018-08-24] MEDS ORDERED: cefTRIAXone SODIUM 1,000 MG/100 ML BAG IV ONE (20:31)
[2018-08-24] MEDS ORDERED: DEXTROSE 50%-WATER 50 ML SYRG ONE (21:37)
[2018-08-24] MEDS ORDERED: DEXTROSE 50%-WATER 50 ML SYRG IV ONE (21:39)
[2018-08-24] MEDS ORDERED: VANCOMYCIN HCL 2 GM in DEXTROSE 5 % IN WATER 500 ML IV ONE ×2 (22:15)
[2018-08-24] MEDS ORDERED: DEXTROSE 5 % IN WATER 1,000 ML IV PRN (23:06)
[2018-08-25] MEDS: GABAPENTIN 300 MG CAPSULE PO SCH ×5 (04:19→20:48)
[2018-08-25] MEDS: ACETAMINOPHEN 500 MG TABLET PO PRN ×3 (04:19→22:54)
[2018-08-25 05:52] LABS: Hematocrit 33.7 % (42.0-52.0); Hemoglobin 10.8 gm/dL (13.5-18.0); Mean Corpuscular Hemoglobin 28.2 pg (27-31); Mean Platelet Volume 8.8 fl (8-11.3); Neutrophil # 8.2 K/mm3 (1.3-6.0); Platelet Count 495 K/mm3 (150-450); Red Blood Count 3.83 M/mm3 (4.7-6.0); Red Cell Distribution Width 14.7 % (11.5-14.0); White Blood Count 11.2 K/mm3 (4.0-10.5)
[2018-08-25 06:04] LABS: Albumin * 2.1 gm/dl (3.4-5.0); BUN/Creatinine Ratio 12.9 (9.0-21.6); Bilirubin, Total 0.3 mg/dL (0.0-1.1); Ca. Corrected For Albumin 9.9 mg/dL (8.4-10.2); Calcium * 8.7 mg/dL (7.9-10.9); Carbon Dioxide 22.7 mmol/L (24-32.6); Potassium 5.7 mmol/L (3.4-4.6); Total Protein 6.9 gm/dL (6.2-8.2)
[2018-08-25] MEDS ORDERED: DEXTROSE 50%-WATER 50 ML SYRG ONE (06:11)
[2018-08-25] MEDS ORDERED: DEXTROSE 50%-WATER 50 ML SYRG IV ONE (06:18)
[2018-08-25] MEDS: ENALAPRIL MALEATE 20 MG TABLET PO SCH ×2 (08:37→20:44)
[2018-08-25] MEDS: ASPIRIN 81 MG TABLET.DR PO SCH (08:37)
[2018-08-25] MEDS ORDERED: glipiZIDE 10 MG TABLET PO SCH (09:00)
[2018-08-25] MEDS ORDERED: GABAPENTIN 100 MG CAPSULE PO SCH (09:00)
--- NOTE | 2018-08-25 10:30 | HP ---
Chief Complaint - Chief Complaint Date of Service: 08/25/18 Time of Service: 08:20 Chief Complaint: weakness, JUAN MIGUEL, cellulitis of foot History of Present Illness: Antonio Marie is a 67 yo wh. male who presents with marked weakness, acute on chronic renal failure, and an infected diabetic R. great toe (plantar). He was in the hospital about a week ago and went home with home health. Once he got home he advised home health that he was not going to be home bound and refused their services. A family memeber called him last evening and said he just didn't sound right and went over to check on him. They saw his deplorable condition and called EMS. His lab and infection were much improved on discharge this last admission and he was walking here at the hospital with just stand-bye assist. When he went home he sat in his recliner for the past week, had not bathed, changed clothes, and had both urine and fecal incontinence. On admission his renal failure is much the same as it was on the last admission showing acute on chronic Kidney injury. His is a diabetic and had been taking Glipizide 10 mg bid. On arrival to the medical floor he his blood sugar was low. The nurses followed the hospital protocol and he was started on D5W at 500cc/hr. His BS dropped again this morning and once again the protocol was followed. @ 2 hrs after eating breakfast his BS was 174. He is alert and conversant with me this morning. Medical History (Updated 08/24/18 @ 21:14 by Juliet Martinez NP) Type II diabetes mellitus (Chronic) Diabetic foot ulcer (Chronic) Diabetes mellitus, type II (Chronic) Onset Date: 04/08/16 Diabetic polyneuropathy (Chronic) Onset Date: 10/14/12 Morbid obesity with BMI of 40.0-44.9, adult (Chronic) Onset Date: 10/21/16 Hyperlipidemia (Chronic) Onset Date: 04/08/16 Hypertension, essential (Chronic) Onset Date: 04/08/16 CKD (chronic kidney disease) stage 3, GFR 30-59 ml/min (Chronic) Onset Date: 08/04/16 Influenza vaccine refused Patient does not want to receive. 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 Smoking Status Former smoker Have you smoked in the past 12 No months (Last Updated 07/19/18 @ 12:22 by Ella Inman MD) No Social History Section defined Review Of Systems (GEN) - Review of Systems Generalized/Overall Review: Present: Weakness, Fatigue EENTM: Present: No Symptoms Reported Respiratory: Present: No Symptoms Reported Cardiac: Present: No Symptoms Reported Abdominal: Present: No Symptoms Reported Genitourinary: Present: No Symptoms Reported Musculoskeletal: Present: Other - Infected R. great toe wound. Neurological: Present: No Symptoms Reported Skin: Present: No Symptoms Reported Endocrine: Present: Other - Hypoglycemic events. Immunizations: IMMUNIZATION HX Immunizations Up to Date No Allergies/Adverse Reactions: Allergies Allergy/AdvReac Type Severity Reaction Status Date / Time cat dander Allergy Intermediate Swelling Verified 08/24/18 23:19 (Other) Home Medications: HOME MEDICATIONS aspirin 81 mg tablet,delayed release 81 mg PO DAILY 09/29/17 [Last Taken Unknown] benazepril 20 mg tablet 20 mg PO BID #180 tab 01/12/18 [Last Taken Unknown] glipizide 10 mg tablet 10 mg PO BID #180 tab 01/12/18 [Last Taken Unknown] metformin 1,000 mg tablet 1,000 mg PO BID #180 tab 01/12/18 [Last Taken Unknown] gabapentin 100 mg capsule 100 mg PO BID #60 cap 06/17/18 [Last Taken Unknown] furosemide 20 mg tablet 20 mg PO DAILY #3 tab 07/20/18 [Last Taken Unknown] Sulfamethoxazole/Trimethoprim [Bactrim Ds] 1 tab PO BID #12 tab 08/19/18 [Last Taken Unknown] Multivitamin [Multivitamins] 1 tab PO DAILY 08/24/18 [Last Taken Unknown] Exam - Exam Vital Signs: Vital Signs - Last Taken Temp 36.5 C 08/25/18 06:49 Pulse 99 06/12/19 08:37 Resp 18 08/25/18 06:49 BP 115/71 08/25/18 08:37 Pulse Ox 97 08/25/18 06:49 Constitutional: Present: Alert, Oriented x3, Cooperative, Well developed, Well nourished, Obese ENT Exam: Present: normal ENT inspection, hearing grossly normal, pharynx normal, TMs normal Eye Exam: bilateral eye: normal inspection, PERRL, EOMI Neck: Present: non-tender, full range of motion, supple Back Exam: Present: normal inspection, no CVA tenderness, no vertebral tenderness Breasts: Present: Exam deferred Respiratory: Present: chest non-tender, lungs clear, normal breath sounds, no respiratory distress, no accessory muscle use Cardiovascular/Chest: Present: normal peripheral pulses, regular rate, rhythm, no chest tenderness, no edema, no gallop, no JVD, no murmur, no rub Peripheral Pulses: carotid (R): 2+, carotid (L): 2+, radial (R): 2+, radial (L): 2+ Abdomen: Present: Normal bowel sounds, soft, nontender, nondistended /Rectal: Present: Exam deferred Extremity: Present: normal range of motion, non-tender, normal inspection, no pedal edema, no calf tenderness Skin Exam: Present: normal color, warm/dry Neurologic: Present: 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, normal cerebellar test, no motor/sensory deficits, alert, normal mood/affect Appearance: Present: appropriate appearance, appropriate insight, neat, no memory impairment Eye contact: Present: cooperative, good eye contact Thoughts: Present: normal thought pattern, no apparent hallucination Diagnostic Studies: Abnormal Lab Results 08/24/18 08/24/18 08/24/18 Range/Units 19:20 19:20 19:20 WBC 14.8 H (4.0-10.5) K/mm3 RBC 4.09 L (4.7-6.0) M/mm3 Hgb 11.4 L (13.5-18.0) gm/dL Hct 35.8 L (42.0-52.0) % MCHC 31.8 L (32-36) g/dl RDW 14.7 H (11.5-14.0) % Plt Count 590 H (150-450) K/mm3 Immature Gran % (Auto) 2.00 H (0.001-0.429) % Immature Gran # (Auto) 0.29 H (0.000-0.0310) K/mm3 Neutrophils % 83.5 H (42-75.0) % Lymphocytes % 8.8 L (20-51) % Neutrophils # 12.3 H (1.3-6.0) K/mm3 Lymphocytes # 1.30 L (1.5-3.5) k/mm3 ESR 110 H (0-10) mm/hr Potassium 5.7 H D (3.4-4.6) mmol/L Carbon Dioxide 21.3 L (24-32.6) mmol/L Anion Gap 17.4 H (6.8-13.8) mmol/L BUN 30 H (6-23) mg/dL Creatinine 2.30 H D (0.4-1.4) mg/dL Est GFR (Non-Af Amer) 30 L D (60-130) mL/min Random Glucose 66 L (70-110) mg/dL Calcium Adj for Albumin 10.5 H (8.4-10.2) mg/dL AST 83 H (0-48) U/L Creatine Kinase (0-259) U/L Albumin 2.3 L (3.4-5.0) gm/dl Urine Protein (NEGATIVE) mg/dL Urine Blood (NEGATIVE) /ul Urine Bacteria (NONE) Urine Mucus (NONE) 08/24/18 08/24/18 08/24/18 Range/Units 20:00 20:00 21:45 WBC (4.0-10.5) K/mm3 RBC (4.7-6.0) M/mm3 Hgb (13.5-18.0) gm/dL Hct (42.0-52.0) % MCHC (32-36) g/dl RDW (11.5-14.0) % Plt Count (150-450) K/mm3 Immature Gran % (Auto) (0.001-0.429) % Immature Gran # (Auto) (0.000-0.0310) K/mm3 Neutrophils % (42-75.0) % Lymphocytes % (20-51) % Neutrophils # (1.3-6.0) K/mm3 Lymphocytes # (1.5-3.5) k/mm3 ESR (0-10) mm/hr Potassium (3.4-4.6) mmol/L Carbon Dioxide (24-32.6) mmol/L Anion Gap (6.8-13.8) mmol/L BUN (6-23) mg/dL Creatinine (0.4-1.4) mg/dL Est GFR (Non-Af Amer) (60-130) mL/min Random Glucose 46 L D (70-110) mg/dL Calcium Adj for Albumin (8.4-10.2) mg/dL AST (0-48) U/L Creatine Kinase 351 H (0-259) U/L Albumin (3.4-5.0) gm/dl Urine Protein 30 H (NEGATIVE) mg/dL Urine Blood 5 H (NEGATIVE) /ul Urine Bacteria 1+ H (NONE) Urine Mucus Few - 1+ H (NONE) 08/25/18 08/25/18 Range/Units 06:00 06:00 WBC 11.2 H D (4.0-10.5) K/mm3 RBC 3.83 L (4.7-6.0) M/mm3 Hgb 10.8 L (13.5-18.0) gm/dL Hct 33.7 L (42.0-52.0) % MCHC (32-36) g/dl RDW 14.7 H (11.5-14.0) % Plt Count 495 H (150-450) K/mm3 Immature Gran % (Auto) 2.00 H (0.001-0.429) % Immature Gran # (Auto) 0.23 H (0.000-0.0310) K/mm3 Neutrophils % (42-75.0) % Lymphocytes % 16.1 L (20-51) % Neutrophils # 8.2 H (1.3-6.0) K/mm3 Lymphocytes # (1.5-3.5) k/mm3 ESR (0-10) mm/hr Potassium 5.7 H (3.4-4.6) mmol/L Carbon Dioxide 22.7 L (24-32.6) mmol/L Anion Gap (6.8-13.8) mmol/L BUN 30 H (6-23) mg/dL Creatinine 2.32 H (0.4-1.4) mg/dL Est GFR (Non-Af Amer) 30 L (60-130) mL/min Random Glucose 35 L* (70-110) mg/dL Calcium Adj for Albumin (8.4-10.2) mg/dL AST 77 H (0-48) U/L Creatine Kinase (0-259) U/L Albumin 2.1 L (3.4-5.0) gm/dl Urine Protein (NEGATIVE) mg/dL Urine Blood (NEGATIVE) /ul Urine Bacteria (NONE) Urine Mucus (NONE) Laboratory Results WBC 11.2 K/mm3 (4.0-10.5) H D 08/25/18 06:00 RBC 3.83 M/mm3 (4.7-6.0) L 08/25/18 06:00 Hgb 10.8 gm/dL (13.5-18.0) L 08/25/18 06:00 Hct 33.7 % (42.0-52.0) L 08/25/18 06:00 MCV 88.0 fl (78-100) 08/25/18 06:00 MCH 28.2 pg (27-31) 08/25/18 06:00 MCHC 32.0 g/dl (32-36) 08/25/18 06:00 RDW 14.7 % (11.5-14.0) H 08/25/18 06:00 Plt Count 495 K/mm3 (150-450) H 08/25/18 06:00 MPV 8.8 fl (8-11.3) 08/25/18 06:00 Immature Gran % (Auto) 2.00 % (0.001-0.429) H 08/25/18 06:00 Immature Gran # (Auto) 0.23 K/mm3 (0.000-0.0310) H 08/25/18 06:00 73.0 % (42-75.0) 08/25/18 06:00 16.1 % (20-51) L 08/25/18 06:00 6.6 % (0.0-9) 08/25/18 06:00 1.5 % (0.0-3.0) 08/25/18 06:00 0.8 % (0.0-1.0) 08/25/18 06:00 Nucleated RBC % 0.0 k/mm3 (0-1) 08/25/18 06:00 8.2 K/mm3 (1.3-6.0) H 08/25/18 06:00 1.81 k/mm3 (1.5-3.5) 08/25/18 06:00 0.7 k/mm3 (0.0-1.0) 08/25/18 06:00 0.2 k/mm3 (0.0-0.7) 08/25/18 06:00 Absolute Basophils 0.1 k/mm3 (0.0-0.1) 08/25/18 06:00 ESR 110 mm/hr (0-10) H 08/24/18 19:20 Sodium 135 mmol/L (132-142) 08/25/18 06:00 134 mmol/L (130-142) 08/25/18 06:00 Potassium 5.7 mmol/L (3.4-4.6) H 08/25/18 06:00 Chloride 105 mmol/L (97-106) 08/25/18 06:00 Carbon Dioxide 22.7 mmol/L (24-32.6) L 08/25/18 06:00 13.0 mmol/L (6.8-13.8) 08/25/18 06:00 BUN 30 mg/dL (6-23) H 08/25/18 06:00 2.32 mg/dL (0.4-1.4) H 08/25/18 06:00 Est GFR (Non-Af Amer) 30 mL/min (60-130) L 08/25/18 06:00 12.9 (9.0-21.6) 08/25/18 06:00 35 mg/dL (70-110) L* 08/25/18 06:00 1.7 mmol/L (0.4-2.0) 08/24/18 19:20 Calcium 8.7 mg/dL (7.9-10.9) 08/25/18 06:00 Calcium Adj for Albumin 9.9 mg/dL (8.4-10.2) 08/25/18 06:00 0.3 mg/dL (0.0-1.1) 08/25/18 06:00 AST 77 U/L (0-48) H 08/25/18 06:00 ALT 59 U/L (19-67) 08/25/18 06:00 58 U/L (50-170) 08/25/18 06:00 351 U/L (0-259) H 08/24/18 20:00 6.9 gm/dL (6.2-8.2) 08/25/18 06:00 2.1 gm/dl (3.4-5.0) L 08/25/18 06:00 0.26 ng/mL (0.05-0.50) 08/24/18 20:00 Yellow 08/24/18 20:00 Clear (CLEAR) 08/24/18 20:00 5.5 pH (5.0-7.0) 08/24/18 20:00 Ur Specific [place] >=1.030 SP.GR. (1.005-1.030) 08/24/18 20:00 30 mg/dL (NEGATIVE) H 08/24/18 20:00 Negative mg/dL (NEGATIVE) 08/24/18 20:00 Negative mg/dL (NEGATIVE) 08/24/18 20:00 5 /ul (NEGATIVE) H 08/24/18 20:00 Negative (NEGATIVE) 08/24/18 20:00 Negative mg/dl (NEGATIVE) 08/24/18 20:00 Prot Sulfosalicylic Acd 1+ mg/dL (0) 08/24/18 20:00 Normal EU/dl (NORMAL) 08/24/18 20:00 Ur Leukocyte Esterase Negative /ul (NEGATIVE) 08/24/18 20:00 None seen /hpf (0-5) 08/24/18 20:00 None seen /hpf (0-5) 08/24/18 20:00 Ur Epithelial Cells 0-5 /hpf (0-5) 08/24/18 20:00 1+ (NONE) H 08/24/18 20:00 Few - 1+ (NONE) H 08/24/18 20:00 No culture indicated 08/24/18 20:00 Assessment/Plan - Narrative Narrative: 1. DC Glipizide 2. Reculture the toe wound 3. Dr. Fischer to consult re wound care 4. PT/OT to evaluate mobility and independence with ADlLs. 5. Rehydrate 6. SNF placement - Assessment/Plan (1) Hypoglycemia Problem: Acute (2) Cellulitis and abscess of foot Problem: Acute (3) Acute kidney injury superimposed on chronic kidney disease Problem: Resolved (4) Cellulitis and abscess of left leg Problem: Acute
[2018-08-25 10:53] LABS: Hematocrit 37.8 % (42.0-52.0); Hemoglobin 11.7 gm/dL (13.5-18.0); Mean Cell Volume 90.9 fl (78-100); Mean Corpuscular Hemoglobin 28.1 pg (27-31); Mean Platelet Volume 9.2 fl (8-11.3); Neutrophil # 8.9 K/mm3 (1.3-6.0); Platelet Count 582 K/mm3 (150-450); Red Blood Count 4.16 M/mm3 (4.7-6.0); Red Cell Distribution Width 14.9 % (11.5-14.0)
[2018-08-25 11:12] LABS: Albumin * 2.4 gm/dl (3.4-5.0); Anion Gap 18.2 mmol/L (6.8-13.8); BUN/Creatinine Ratio 13.5 (9.0-21.6); Bilirubin, Total 0.3 mg/dL (0.0-1.1); Ca. Corrected For Albumin 10.2 mg/dL (8.4-10.2); Calcium * 9.2 mg/dL (7.9-10.9); Carbon Dioxide 22.7 mmol/L (24-32.6); Potassium 5.9 mmol/L (3.4-4.6); Total Protein 6.8 gm/dL (6.2-8.2)
[2018-08-25] MEDS: SULFAMETHOXAZOLE/TRIMETHOPRIM 1 TAB TABLET PO SCH ×2 (11:43→20:48)
[2018-08-25] MEDS: LEVOFLOXACIN 750 MG TABLET PO SCH (11:43)
--- NOTE | 2018-08-25 15:48 | CONS ---
[facility] - General Date of Service: 08/25/18 Narrative: Pt is evaluated today at bedside resting. States that he was admitted last evening after suffering several falls at home. He was brought to the ED, and was admitted from there. After review of ED documentation, it appears that after he was recently discharged home from the hospital, he did not do much to care for himself. He presented disheveled, in the same clothes he was discharged home wearing. Family reports he had not been eating well, and had a blood glucose of 38. Case management relates that he was to have home health coming to his home to assist with dressing changes for his left foot ulceration, as well as daily activities, however he refused to allow them in the home when they arrived. He has a chronic ulceration to the plantar surface of his left great toe, that has been present for several months. I had previously been providing care to this ulceration, however patient has failed to follow up over the last several months. Ulceration has not been dressed since his discharge, and is covered with pet hair. I was consulted for further evaluation and treatment. Source: patient, EMS notes reviewed, other - case management - History of Present Illness Allergies/Adverse Reactions: Allergies cat dander Allergy (Intermediate, Verified 08/24/18 23:19) Swelling (Other) 01/12/2013 Home Medications: Home Medications Medication Instructions Recorded Last Taken aspirin 81 mg tablet,delayed 81 mg PO DAILY 09/29/17 Unknown release benazepril 20 mg tablet 20 mg PO BID #180 tab 01/12/18 Unknown glipizide 10 mg tablet 10 mg PO BID #180 tab 01/12/18 Unknown metformin 1,000 mg tablet 1,000 mg PO BID #180 tab 01/12/18 Unknown gabapentin 100 mg capsule 100 mg PO BID #60 cap 06/17/18 Unknown furosemide 20 mg tablet 20 mg PO DAILY #3 tab 07/20/18 Unknown Sulfamethoxazole/Trimethoprim 1 tab PO BID #12 tab 08/19/18 Unknown [Bactrim Ds] Multivitamin [Multivitamins] 1 tab PO DAILY 08/24/18 Unknown Procedures Excision of Left Foot Subcutaneous Tissue and Fascia, Open Approach (08/13/18) Insertion of intraocular lens prosthesis at time of cataract extraction, one- stage (01/12/12) Phacoemulsification and aspiration of cataract (01/12/12) Medications - Medications Current Medications: Current Medications Acetaminophen (Tylenol) 1,000 mg PO Q6H PRN PRN Reason: Mild pain (pain scale 1-3) Stop: 09/24/18 03:41 Last Admin: 08/25/18 04:19 Dose: 1,000 mg Documented by: Aspirin (Aspirin Enteric Coated) 81 mg PO DAILY [facility] Stop: 09/24/18 09:01 Last Admin: 08/25/18 08:37 Dose: 81 mg Documented by: Enalapril Maleate (Vasotec) 20 mg PO BID [facility] Stop: 09/24/18 09:01 Last Admin: 08/25/18 08:37 Dose: 20 mg Documented by: Gabapentin (Neurontin) 300 mg PO QID [facility] Stop: 09/24/18 04:01 Last Admin: 08/25/18 13:56 Dose: 300 mg Documented by: Levofloxacin (Levaquin) 750 mg PO Q48H [facility]; Protocol Stop: 09/24/18 12:01 Last Admin: 08/25/18 11:43 Dose: 750 mg Documented by: Trimethoprim/Sulfamethoxazole (Bactrim Ds) 1 tab PO BID [facility]; Protocol Stop: 09/24/18 11:16 Last Admin: 08/25/18 11:43 Dose: 1 tab Documented by: Review of Systems - Review of Systems Generalized/Overall Review: Present: Weakness. Absent: Chills, Fever Respiratory: Absent: Shortness of Breath Cardiac: Present: Edema Abdominal: Absent: Nausea, Vomiting, Diarrhea Neurological: Present: Numbness Skin: Present: Other - left great toe ulcer Physical Examination - Exam Vital Signs: Vital Signs - Last Taken Temp 36.9 C 08/25/18 14:57 Pulse 94 08/25/18 14:57 Resp 18 08/25/18 14:57 BP 109/52 08/25/18 14:57 Pulse Ox 95 08/25/18 14:57 O2 Oxygen Delivery Method Room Air Constitutional: Present: Alert, Oriented x3, Cooperative Peripheral Pulses: dorsalis-pedis (L): 2+ Extremity: Present: lower extremity edema Skin Exam: Present: other - Ulceration to the plantar IPJ of the left great toe measuring 1 x 0.8 x 0.4 cm. No tunneling or undermining. Loss of tissue to full thickness with exposure of subcutaneous fat layer. Base covered with pet hair, upon removal base is red, granular. Surrounding tissue with hyperkeratosis. There is a minimal amount of serous drainage, slight malodor present. No exposed tendon or bone at this time. Neurologic: Present: sensory deficit Appearance: Present: appropriate appearance Eye contact: Present: cooperative - Results and Findings: Lab/Microbiology results last 24 hrs: Abnormal/Pending Laboratory Last 24 HRS 08/25/18 08/25/18 08/25/18 10:45 10:45 06:00 WBC 12.0 H RBC 4.16 L Hgb 11.7 L Hct 37.8 L MCHC 31.0 L RDW 14.9 H Plt Count 582 H Immature Gran % (Auto) 1.70 H Immature Gran # (Auto) 0.20 H Neutrophils % Lymphocytes % 15.7 L Neutrophils # 8.9 H Lymphocytes # ESR Potassium 5.9 H 5.7 H Carbon Dioxide 22.7 L 22.7 L Anion Gap 18.2 H BUN 31 H 30 H Creatinine 2.29 H 2.32 H Est GFR (Non-Af Amer) 30 L 30 L Random Glucose 35 L* Calcium Adj for Albumin AST 85 H 77 H Creatine Kinase Albumin 2.4 L 2.1 L Urine Protein Urine Blood Urine Bacteria Urine Mucus 08/25/18 08/24/18 08/24/18 06:00 21:45 20:00 WBC 11.2 H D RBC 3.83 L Hgb 10.8 L Hct 33.7 L MCHC RDW 14.7 H Plt Count 495 H Immature Gran % (Auto) 2.00 H Immature Gran # (Auto) 0.23 H Neutrophils % Lymphocytes % 16.1 L Neutrophils # 8.2 H Lymphocytes # ESR Potassium Carbon Dioxide Anion Gap BUN Creatinine Est GFR (Non-Af Amer) Random Glucose 46 L D Calcium Adj for Albumin AST Creatine Kinase 351 H Albumin Urine Protein Urine Blood Urine Bacteria Urine Mucus 08/24/18 08/24/18 08/24/18 20:00 19:20 19:20 WBC RBC Hgb Hct MCHC RDW Plt Count Immature Gran % (Auto) Immature Gran # (Auto) Neutrophils % Lymphocytes % Neutrophils # Lymphocytes # ESR 110 H Potassium 5.7 H D Carbon Dioxide 21.3 L Anion Gap 17.4 H BUN 30 H Creatinine 2.30 H D Est GFR (Non-Af Amer) 30 L D Random Glucose 66 L Calcium Adj for Albumin 10.5 H AST 83 H Creatine Kinase Albumin 2.3 L Urine Protein 30 H Urine Blood 5 H Urine Bacteria 1+ H Urine Mucus Few - 1+ H 08/24/18 19:20 WBC 14.8 H RBC 4.09 L Hgb 11.4 L Hct 35.8 L MCHC 31.8 L RDW 14.7 H Plt Count 590 H Immature Gran % (Auto) 2.00 H Immature Gran # (Auto) 0.29 H Neutrophils % 83.5 H Lymphocytes % 8.8 L Neutrophils # 12.3 H Lymphocytes # 1.30 L ESR Potassium Carbon Dioxide Anion Gap BUN Creatinine Est GFR (Non-Af Amer) Random Glucose Calcium Adj for Albumin AST Creatine Kinase Albumin Urine Protein Urine Blood Urine Bacteria Urine Mucus - Assessments/Findings (1) Diabetic foot ulcer Diagnosis(s): Verbal consent obtained from patient for bedside debridement. Ulceration debrided to subcutaneous tissue with #15 blade, excising all hyperkeratotic tissue down to bleeding, subcutaneous wound margins. Surface of the ulceration also debrided with #15 blade, removing all pet hair and any devitalized tissue down to healthy bleeding, subcutaneous wound bed. Hemostasis with compression. Pt tolerated well. Swab culture obtained from wound bed. Will await results, and order ABX accordingly. Wound dressed with Aquacel Ag, dry gauze, andrea and tape. Dressings to be change daily. Continue on current medications at this time. Pt to minimize weight on the foot when possible to help reduce pressure on the ulceration, to help promote healing. Wear surgical shoe as previously instructed to assist with offloading when ambulatory. Will continue to follow. Problem: Chronic Qualifiers: Diabetic foot ulcer location: toe Diabetes mellitus type: type 2 L aterality: left Non-pressure ulcer stage: with fat layer exposed Qualified Code(s): E11.621 - Type 2 diabetes mellitus with foot ulcer; L97.522 - Non- pressure chronic ulcer of other part of left foot with fat layer exposed
[2018-08-25] MEDS ORDERED: VANCOMYCIN HCL 1 GM, VANCOMYCIN HCL 750 MG in DEXTROSE 5 % IN WATER 500 ML IV SCH ×3 (23:00)
[2018-08-26] MEDS: ENALAPRIL MALEATE 20 MG TABLET PO SCH (10:30)
[2018-08-26] MEDS: SULFAMETHOXAZOLE/TRIMETHOPRIM 1 TAB TABLET PO SCH ×2 (10:30→20:59)
[2018-08-26] MEDS: GABAPENTIN 300 MG CAPSULE PO SCH ×4 (10:30→20:59)
[2018-08-26] MEDS: ASPIRIN 81 MG TABLET.DR PO SCH (10:30)
[2018-08-26] MEDS ORDERED: GABAPENTIN 100 MG CAPSULE PO SCH (11:30)
[2018-08-26 11:53] LABS: Hematocrit 35.2 % (42.0-52.0); Mean Cell Volume 88.7 fl (78-100); Mean Corpuscular Hemoglobin 27.7 pg (27-31); Mean Corpuscular Hgb Conc 31.3 g/dl (32-36); Neutrophil # 7.7 K/mm3 (1.3-6.0); Neutrophil % 72.3 % (42-75.0); Platelet Count 566 K/mm3 (150-450); Red Blood Count 3.97 M/mm3 (4.7-6.0); Red Cell Distribution Width 14.7 % (11.5-14.0); White Blood Count 10.7 K/mm3 (4.0-10.5)
[2018-08-26 12:00] LABS: Albumin * 2.4 gm/dl (3.4-5.0); Anion Gap 15.4 mmol/L (6.8-13.8); Bilirubin, Total 0.3 mg/dL (0.0-1.1); Ca. Corrected For Albumin 10.1 mg/dL (8.4-10.2); Calcium * 9.1 mg/dL (7.9-10.9); Carbon Dioxide 21.7 mmol/L (24-32.6); Potassium 6.1 mmol/L (3.4-4.6); Total Protein 7.7 gm/dL (6.2-8.2)
[2018-08-26] MEDS ORDERED: NORMAL SALINE 1,000 ML IV PRN (16:05)
--- NOTE | 2018-08-26 16:39 | PN ---
Subjective - Date and Time Seen Date: 08/26/18 Time: 10:00 Subjective Narrative: Antonio has improved and how he feels and he is actually walking some with standby and contact guard assistance. Unfortunately his lab work is worse today with worsening kidney function and rising potassium now at 6.1. His blood sugars have risen to 270. He has not experienced any more lows. I have not restarted his diabetic medication which was a sulfonylurea because of his renal status and hypoglycemic events that he was having. His renal status is too poor to use DPP 4 or GLP-1 class medications and therefore I will start him on a basal insulin and may add mealtime insulin starting tomorrow. I am discontinuing the enalapril because of the hyperkalemia and renal insufficiency with a GFR now 26. I will give him a liter of IV fluid tonight and another one tomorrow morning. And I will redo his morning lab. Objective - Review of Systems Generalized/Overall Review: Reports: Weakness EENTM: Reports: No Symptoms Reported Respiratory: Reports: No Symptoms Reported Cardiac: Reports: No Symptoms Reported Abdominal: Reports: No Symptoms Reported Genitourinary Symptoms: Reports: No Symptoms Reported Musculoskeletal Complaints: Reports: Back Pain, Other - Arm stiffness and generalized muscle weakness Neurological: Reports: Weakness Skin: Reports: No Symptoms Reported Endocrine: Reports: No Symptoms Reported - Vitals Vitals: Last Vital Signs Temp 37.0 C 08/26/18 15:08 Pulse 87 08/26/18 15:08 Resp 16 08/26/18 15:08 BP 99/54 08/26/18 15:08 Pulse Ox 95 08/26/18 15:08 - Abnormal Lab Findings Abnormal Lab Findings: Abnormal Lab Results 08/26/18 08/26/18 Range/Units 11:40 11:40 WBC 10.7 H (4.0-10.5) K/mm3 RBC 3.97 L (4.7-6.0) M/mm3 Hgb 11.0 L (13.5-18.0) gm/dL Hct 35.2 L (42.0-52.0) % MCHC 31.3 L (32-36) g/dl RDW 14.7 H (11.5-14.0) % Plt Count 566 H (150-450) K/mm3 Immature Gran % (Auto) 1.80 H (0.001-0.429) % Immature Gran # (Auto) 0.19 H (0.000-0.0310) K/mm3 Lymphocytes % 16.7 L (20-51) % Neutrophils # 7.7 H (1.3-6.0) K/mm3 Potassium 6.1 H (3.4-4.6) mmol/L Carbon Dioxide 21.7 L (24-32.6) mmol/L Anion Gap 15.4 H (6.8-13.8) mmol/L BUN 42 H (6-23) mg/dL Creatinine 2.62 H (0.4-1.4) mg/dL Est GFR (Non-Af Amer) 26 L (60-130) mL/min Random Glucose 209 H D (70-110) mg/dL AST 57 H (0-48) U/L Albumin 2.4 L (3.4-5.0) gm/dl - EKG/Xray Findings XRAY: chest Interpretation: Reviewed by me - Exam Constitutional: Present: Alert, Oriented x3, Cooperative, Well developed, Well nourished, No distress ENT Exam: Present: normal ENT inspection, hearing grossly normal, pharynx normal, TMs normal Neck: Present: non-tender, full range of motion, supple, normal inspection Breasts: Present: Exam deferred Respiratory: Present: chest non-tender, lungs clear, normal breath sounds Cardiovascular/Chest: Present: normal peripheral pulses, regular rate, rhythm, no chest tenderness Abdomen: Present: Normal bowel sounds, soft, nontender, nondistended, no rebound tenderness, no hepatospenomegaly, no masses /Rectal: Present: Exam deferred Extremity: Present: normal range of motion, non-tender, normal inspection, no pedal edema, no calf tenderness, normal capillary refill Skin Exam: Present: normal color, warm/dry, no cyanosis Lymphatic: Present: no adenopathy Neurologic: Present: 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 Still working on placement for him. Her other plans see above narrative. - Problems/Diagnosis (1) Hypoglycemia Problem: Acute (2) Cellulitis and abscess of foot Problem: Acute (3) Acute kidney injury superimposed on chronic kidney disease Problem: Acute (4) Cellulitis and abscess of left leg Problem: Acute (5) Hyperkalemia Problem: Acute
[2018-08-26] MEDS: ACETAMINOPHEN 500 MG TABLET PO PRN (17:07)
[2018-08-26] MEDS: INSULIN GLARGINE,HUM.REC.ANLOG 100 UNITS/ML VIAL SC SCH (17:11)
[2018-08-27 05:27] LABS: Hematocrit 30.7 % (42.0-52.0); Hemoglobin 9.7 gm/dL (13.5-18.0); Mean Cell Volume 87.7 fl (78-100); Mean Corpuscular Hemoglobin 27.7 pg (27-31); Mean Corpuscular Hgb Conc 31.6 g/dl (32-36); Mean Platelet Volume 8.9 fl (8-11.3); Neutrophil # 5.6 K/mm3 (1.3-6.0); Neutrophil % 68.8 % (42-75.0); Platelet Count 442 K/mm3 (150-450); Red Cell Distribution Width 14.6 % (11.5-14.0); White Blood Count 8.2 K/mm3 (4.0-10.5)
[2018-08-27 05:51] LABS: Albumin * 2.1 gm/dl (3.4-5.0); Anion Gap 15.3 mmol/L (6.8-13.8); BUN/Creatinine Ratio 18.6 (9.0-21.6); Bilirubin, Total 0.3 mg/dL (0.0-1.1); Ca. Corrected For Albumin 9.7 mg/dL (8.4-10.2); Calcium * 8.5 mg/dL (7.9-10.9); Carbon Dioxide 19.4 mmol/L (24-32.6); Total Protein 6.7 gm/dL (6.2-8.2)
[2018-08-27 06:09] LABS: Potassium 6.7 mmol/L (3.4-4.6)
[2018-08-27] MEDS ORDERED: SODIUM POLYSTYRENE SULFON/SORB 15 G/60 ML ORAL.SUSP PO ONE (06:29)
[2018-08-27] MEDS ORDERED: NORMAL SALINE 1,000 ML IV ONE (06:30)
[2018-08-27] MEDS: ASPIRIN 81 MG TABLET.DR PO SCH (08:00)
[2018-08-27] MEDS: GABAPENTIN 300 MG CAPSULE PO SCH ×4 (08:00→20:17)
[2018-08-27] MEDS: SULFAMETHOXAZOLE/TRIMETHOPRIM 1 TAB TABLET PO SCH ×2 (08:01→20:18)
[2018-08-27] MEDS: INSULIN GLARGINE,HUM.REC.ANLOG 100 UNITS/ML VIAL SC SCH (08:02)
--- NOTE | 2018-08-27 10:27 | PN ---
Subjective - Date and Time Seen Date: 08/27/18 Time: 09:30 Subjective Narrative: Antonio states that he is feeling some better this morning. He is walked a little farther today than yesterday. He says his shoulders are feeling a little better and not so tight. He is unable to fully extend the right knee however. He can extend the left knee without difficulty. He has no other complaints. Dr. Fischer saw him yesterday and cleaned out the toe ulcer which was full of cat hair. It was then recultured and dressed. Unfortunately his potassium has risen again and is 6.7 this morning. Also there is been a further decline in his renal status. He has had 2 L of IV fluid one last night and one this morning. Because he had fallen at home after his last hospitalization and spent almost the entire time in his recliner chair the concern for rhabdomyolysis with declining kidney function and rising potassium is of concern. The urine however is light gerson. There is not been any tea colored urine reported. I have ordered urinary and serum myoglobin and a serum CPK total and the results are pending this dictation. I spoke with our dietitian who recommends changing from Glucerna to boost to get less potassium from his supplements and also to add low potassium foods to his mechanically softened consistent carb diet. I am starting him on IV fluids had 125 cc/h. I will turn his care over to Dr. Gallegos at noon. It appears that Antonio will be with us through the weekend now. Objective - Review of Systems Generalized/Overall Review: Reports: Weakness EENTM: Reports: No Symptoms Reported Respiratory: Reports: No Symptoms Reported Cardiac: Reports: No Symptoms Reported Abdominal: Reports: No Symptoms Reported Genitourinary Symptoms: Reports: No Symptoms Reported Musculoskeletal Complaints: Reports: Joint Pain - Right knee, Muscle Pain Neurological: Reports: No Symptoms Reported Skin: Reports: No Symptoms Reported, Other - Lower extremities are violaceous in color anteriorly. This is chronic. There is no redness or fever. There is moderate edema present. Endocrine: Reports: No Symptoms Reported Misc: All systems neg except as marked - Vitals Vitals: Last Vital Signs Temp 36.7 C 08/27/18 10:08 Pulse 96 08/27/18 10:08 Resp 16 08/27/18 10:08 BP 109/61 08/27/18 10:08 Pulse Ox 97 08/27/18 10:08 - Abnormal Lab Findings Abnormal Lab Findings: Abnormal Lab Results 08/26/18 08/26/18 08/27/18 Range/Units 11:40 11:40 05:15 WBC 10.7 H (4.0-10.5) K/mm3 RBC 3.97 L (4.7-6.0) M/mm3 Hgb 11.0 L (13.5-18.0) gm/dL Hct 35.2 L (42.0-52.0) % MCHC 31.3 L (32-36) g/dl RDW 14.7 H (11.5-14.0) % Plt Count 566 H (150-450) K/mm3 Immature Gran % (Auto) 1.80 H (0.001-0.429) % Immature Gran # (Auto) 0.19 H (0.000-0.0310) K/mm3 Lymphocytes % 16.7 L (20-51) % Monocytes % (0.0-9) % Neutrophils # 7.7 H (1.3-6.0) K/mm3 Lymphocytes # (1.5-3.5) k/mm3 Potassium 6.1 H 6.7 H* (3.4-4.6) mmol/L Carbon Dioxide 21.7 L 19.4 L (24-32.6) mmol/L Anion Gap 15.4 H 15.3 H (6.8-13.8) mmol/L BUN 42 H 51 H (6-23) mg/dL Creatinine 2.62 H 2.74 H (0.4-1.4) mg/dL Est GFR (Non-Af Amer) 26 L 25 L (60-130) mL/min Random Glucose 209 H D 160 H (70-110) mg/dL AST 57 H (0-48) U/L Albumin 2.4 L 2.1 L (3.4-5.0) gm/dl 08/27/18 Range/Units 05:15 WBC (4.0-10.5) K/mm3 RBC 3.50 L (4.7-6.0) M/mm3 Hgb 9.7 L (13.5-18.0) gm/dL Hct 30.7 L (42.0-52.0) % MCHC 31.6 L (32-36) g/dl RDW 14.6 H (11.5-14.0) % Plt Count (150-450) K/mm3 Immature Gran % (Auto) 1.50 H (0.001-0.429) % Immature Gran # (Auto) 0.12 H (0.000-0.0310) K/mm3 Lymphocytes % 18.0 L (20-51) % Monocytes % 9.2 H (0.0-9) % Neutrophils # (1.3-6.0) K/mm3 Lymphocytes # 1.47 L (1.5-3.5) k/mm3 Potassium (3.4-4.6) mmol/L Carbon Dioxide (24-32.6) mmol/L Anion Gap (6.8-13.8) mmol/L BUN (6-23) mg/dL Creatinine (0.4-1.4) mg/dL Est GFR (Non-Af Amer) (60-130) mL/min Random Glucose (70-110) mg/dL AST (0-48) U/L Albumin (3.4-5.0) gm/dl - Exam Constitutional: Present: Alert, Oriented x3, Cooperative, Well developed, Well nourished, No distress, Obese ENT Exam: Present: normal ENT inspection, hearing grossly normal, pharynx normal, TMs normal, hard of hearing Neck: Present: non-tender, full range of motion, supple, normal inspection Breasts: Present: Exam deferred Respiratory: Present: chest non-tender, lungs clear, normal breath sounds Cardiovascular/Chest: Present: normal peripheral pulses, regular rate, rhythm, no chest tenderness, no gallop, no JVD, no murmur, no rub, edema Abdomen: Present: Normal bowel sounds, soft, nontender, nondistended, no rebound tenderness, no hepatospenomegaly, no masses, obese Extremity: Present: normal range of motion, non-tender, normal inspection - Except for the right knee which she cannot fully extend past about 150 degrees., lower extremity edema Skin Exam: Present: normal color, other - Except for the anterior lower legs as described above. 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 Start Kayexalate 15 g. He was started on the first dose this morning. He will get it about every 6 hours until the potassium is in a safer range. The goal will be less than 5. 2. Recheck potassium at noon 3. Start normal saline at 125 cc an hour continuously 4. Recheck CBC, CMP, CK tomorrow morning 5. Check CK this morning - Problems/Diagnosis (1) Cellulitis and abscess of foot Problem: Acute (2) Hypoglycemia Problem: Acute (3) Acute kidney injury superimposed on chronic kidney disease Problem: Acute (4) Cellulitis and abscess of left leg Problem: Acute (5) Hyperkalemia Problem: Acute (6) Rhabdomyolysis Problem: Suspected Qualifiers: Rhabdomyolysis type: traumatic Encounter type: initial encounter Qualified Code(s): T79.6XXA - Traumatic ischemia of muscle, initial encounter
[2018-08-27] MEDS: NORMAL SALINE 1,000 ML IV PRN ×2 (10:40→18:48)
[2018-08-27] MEDS: LEVOFLOXACIN 750 MG TABLET PO SCH (12:02)
[2018-08-27] MEDS ORDERED: SODIUM POLYSTYRENE SULFON/SORB 15 G/60 ML ORAL.SUSP PO SCH ×2 (13:00→17:00)
[2018-08-27] MEDS: ACETAMINOPHEN 500 MG TABLET PO PRN (13:14)
[2018-08-27] MEDS: SODIUM POLYSTYRENE SULFON/SORB 15 G/60 ML ORAL.SUSP PO SCH (18:51)
[2018-08-27] MEDS ORDERED: FUROSEMIDE 10 MG/ML VIAL IV ONE (19:48)
[2018-08-27] MEDS ORDERED: FUROSEMIDE 10 MG/ML VIAL ONE (20:07)
[2018-08-28] MEDS: SODIUM POLYSTYRENE SULFON/SORB 15 G/60 ML ORAL.SUSP PO SCH ×2 (01:02→07:07)
[2018-08-28 05:56] LABS: Hematocrit 29.4 % (42.0-52.0); Hemoglobin 9.3 gm/dL (13.5-18.0); Mean Cell Volume 88.3 fl (78-100); Mean Corpuscular Hemoglobin 27.9 pg (27-31); Mean Corpuscular Hgb Conc 31.6 g/dl (32-36); Mean Platelet Volume 8.7 fl (8-11.3); Neutrophil # 3.8 K/mm3 (1.3-6.0); Neutrophil % 59.6 % (42-75.0); Platelet Count 399 K/mm3 (150-450); Red Blood Count 3.33 M/mm3 (4.7-6.0); Red Cell Distribution Width 14.7 % (11.5-14.0); White Blood Count 6.3 K/mm3 (4.0-10.5)
[2018-08-28 06:14] LABS: Albumin * 2.1 gm/dl (3.4-5.0); Anion Gap 15.4 mmol/L (6.8-13.8); BUN/Creatinine Ratio 22.1 (9.0-21.6); Bilirubin, Total 0.2 mg/dL (0.0-1.1); Calcium * 8.8 mg/dL (7.9-10.9); Carbon Dioxide 22.2 mmol/L (24-32.6); Potassium 5.6 mmol/L (3.4-4.6); Total Protein 6.5 gm/dL (6.2-8.2)
[2018-08-28] MEDS: ASPIRIN 81 MG TABLET.DR PO SCH (09:13)
[2018-08-28] MEDS: SULFAMETHOXAZOLE/TRIMETHOPRIM 1 TAB TABLET PO SCH ×2 (09:13→20:27)
[2018-08-28] MEDS: GABAPENTIN 300 MG CAPSULE PO SCH ×4 (09:13→20:27)
[2018-08-28] MEDS: INSULIN GLARGINE,HUM.REC.ANLOG 100 UNITS/ML VIAL SC SCH (09:13)
[2018-08-28 14:25] LABS: Albumin * 2.2 gm/dl (3.4-5.0); Anion Gap 15.6 mmol/L (6.8-13.8); BUN/Creatinine Ratio 22.1 (9.0-21.6); Bilirubin, Total 0.2 mg/dL (0.0-1.1); Ca. Corrected For Albumin 10.4 mg/dL (8.4-10.2); Calcium * 9.3 mg/dL (7.9-10.9); Carbon Dioxide 23.8 mmol/L (24-32.6); Potassium 5.4 mmol/L (3.4-4.6); Total Protein 7.1 gm/dL (6.2-8.2)
--- NOTE | 2018-08-28 23:26 | PN ---
Subjective - Date and Time Seen Date: 08/28/18 Time: 10:00 Subjective Narrative: Antonio reports feeling better. Still has more swelling in his legs than normal. He reports pain is controlled. Redness is better. No nausea, vomiting. Objective - Vitals Vitals: Last Vital Signs Temp 37.0 C 08/28/18 19:02 Pulse 89 08/28/18 19:02 Resp 16 08/28/18 19:02 BP 134/63 08/28/18 19:02 Pulse Ox 98 08/28/18 19:02 - Abnormal Lab Findings Abnormal Lab Findings: Abnormal Lab Results 08/28/18 08/28/18 08/28/18 Range/Units 05:54 05:54 14:03 RBC 3.33 L (4.7-6.0) M/mm3 Hgb 9.3 L (13.5-18.0) gm/dL Hct 29.4 L (42.0-52.0) % MCHC 31.6 L (32-36) g/dl RDW 14.7 H (11.5-14.0) % Immature Gran % (Auto) 1.70 H (0.001-0.429) % Immature Gran # (Auto) 0.11 H (0.000-0.0310) K/mm3 Monocytes % 11.1 H (0.0-9) % Basophils % 1.1 H (0.0-1.0) % Potassium 5.6 H 5.4 H (3.4-4.6) mmol/L Chloride 107 H (97-106) mmol/L Carbon Dioxide 22.2 L 23.8 L (24-32.6) mmol/L Anion Gap 15.4 H 15.6 H (6.8-13.8) mmol/L BUN 47 H 46 H (6-23) mg/dL Creatinine 2.13 H D 2.08 H (0.4-1.4) mg/dL Est GFR (Non-Af Amer) 33 L D 34 L (60-130) mL/min BUN/Creatinine Ratio 22.1 H 22.1 H (9.0-21.6) Random Glucose 139 H 196 H D (70-110) mg/dL Calcium Adj for Albumin 10.4 H (8.4-10.2) mg/dL AST 52 H (0-48) U/L Albumin 2.1 L 2.2 L (3.4-5.0) gm/dl - Exam Constitutional: Present: Alert, Oriented x3, Cooperative ENT Exam: Present: hearing grossly normal Respiratory: Present: lungs clear, normal breath sounds Cardiovascular/Chest: Present: regular rate, rhythm, no murmur Abdomen: Present: Normal bowel sounds, soft, nontender, nondistended Extremity: Present: lower extremity edema - 2+, mild diffuse erythema Assessment/Plan Plan Narrative: Feeling better, bloodwork improving. Continue current treatment. WBC normalized. Tolerated a dose of lasix and renal function improved. - Problems/Diagnosis (1) Cellulitis Problem: Acute Qualifiers: Site of cellulitis: extremity Site of cellulitis of extremity: lower extremity Laterality: unspecified laterality Qualified Code(s): L03.119 - Cellulitis of unspecified part of limb (2) Acute renal failure Problem: Acute Qualifiers: Acute renal failure type: unspecified Qualified Code(s): N17.9 - Acute kidney failure, unspecified
[2018-08-29 06:11] LABS: Hematocrit 30.9 % (42.0-52.0); Hemoglobin 9.7 gm/dL (13.5-18.0); Mean Corpuscular Hemoglobin 27.6 pg (27-31); Mean Corpuscular Hgb Conc 31.4 g/dl (32-36); Mean Platelet Volume 8.6 fl (8-11.3); Neutrophil # 3.8 K/mm3 (1.3-6.0); Neutrophil % 56.6 % (42-75.0); Platelet Count 357 K/mm3 (150-450); Red Blood Count 3.51 M/mm3 (4.7-6.0); Red Cell Distribution Width 14.6 % (11.5-14.0); White Blood Count 6.7 K/mm3 (4.0-10.5)
[2018-08-29 06:25] LABS: Albumin * 2.1 gm/dl (3.4-5.0); Anion Gap 13.8 mmol/L (6.8-13.8); BUN/Creatinine Ratio 21.4 (9.0-21.6); Bilirubin, Total 0.3 mg/dL (0.0-1.1); Ca. Corrected For Albumin 9.9 mg/dL (8.4-10.2); Calcium * 8.7 mg/dL (7.9-10.9); Carbon Dioxide 24.1 mmol/L (24-32.6); Potassium 4.9 mmol/L (3.4-4.6); Total Protein 6.7 gm/dL (6.2-8.2)
[2018-08-29] MEDS: GABAPENTIN 300 MG CAPSULE PO SCH ×4 (08:32→21:20)
[2018-08-29] MEDS: ASPIRIN 81 MG TABLET.DR PO SCH (08:32)
[2018-08-29] MEDS: INSULIN GLARGINE,HUM.REC.ANLOG 100 UNITS/ML VIAL SC SCH (08:33)
[2018-08-29] MEDS: SULFAMETHOXAZOLE/TRIMETHOPRIM 1 TAB TABLET PO SCH ×2 (08:33→21:20)
[2018-08-29] MEDS: LEVOFLOXACIN 750 MG TABLET PO SCH (11:59)
[2018-08-30] MEDS: ACETAMINOPHEN 500 MG TABLET PO PRN ×3 (01:45→16:18)
[2018-08-30] MEDS: ASPIRIN 81 MG TABLET.DR PO SCH (09:04)
[2018-08-30] MEDS: SULFAMETHOXAZOLE/TRIMETHOPRIM 1 TAB TABLET PO SCH (09:04)
[2018-08-30] MEDS: INSULIN GLARGINE,HUM.REC.ANLOG 100 UNITS/ML VIAL SC SCH (09:04)
[2018-08-30] MEDS: GABAPENTIN 300 MG CAPSULE PO SCH ×4 (09:05→20:50)
[2018-08-30] MEDS: CLINDAMYCIN HCL 150 MG CAPSULE PO SCH ×2 (09:35→17:28)
--- NOTE | 2018-08-30 09:36 | PN ---
Subjective - Date and Time Seen Date: 08/29/18 Time: 10:30 Subjective Narrative: Antonio reports feeling well. No fever, chills, nausea, or vomiting. Pain controlled. Eating well. Renal function has improved to baseline. WBC normalized. Objective - Vitals Vitals: Last Vital Signs Temp 37.2 C 08/30/18 06:32 Pulse 82 08/30/18 06:32 Resp 16 08/30/18 06:32 BP 121/73 08/30/18 06:32 Pulse Ox 95 08/30/18 06:32 - Exam Constitutional: Present: Alert, Oriented x3, Cooperative ENT Exam: Present: hearing grossly normal Respiratory: Present: lungs clear, normal breath sounds Cardiovascular/Chest: Present: regular rate, rhythm, no murmur Abdomen: Present: Normal bowel sounds, soft, nontender, nondistended Extremity: Present: lower extremity edema - 2+. erythema resolved Appearance: Present: appropriate appearance, appropriate insight Eye contact: Present: cooperative, good eye contact, normal speech Assessment/Plan Plan Narrative: Doing well. Renal function back to baseline. Cellulitis improved. Plan to discharge to care facility for therapy and strengthening tomorrow. - Problems/Diagnosis (1) Cellulitis Problem: Acute Qualifiers: Site of cellulitis: extremity Site of cellulitis of extremity: lower extremity Laterality: unspecified laterality Qualified Code(s): L03.119 - Cellulitis of unspecified part of limb (2) Acute renal failure Problem: Acute Qualifiers: Acute renal failure type: unspecified Qualified Code(s): N17.9 - Acute kidney failure, unspecified
--- NOTE | 2018-08-30 19:23 | PN ---
Subjective - Date and Time Seen Date: 08/30/18 Time: 08:15 Subjective Narrative: Sami has had an uneventful night. He is eating well. He is walking longer distances each day and walked the [place] the [place] today. Lab is improved with K+ down to 4.9. Still awaiting SNF placement for him. The EGFR yesterday was up to 40. Hg up to 9.7. No lab done this morning. Objective - Review of Systems Generalized/Overall Review: Reports: No Symptoms Reported EENTM: Reports: No Symptoms Reported Respiratory: Reports: No Symptoms Reported Cardiac: Reports: No Symptoms Reported Abdominal: Reports: No Symptoms Reported Genitourinary Symptoms: Reports: No Symptoms Reported Musculoskeletal Complaints: Reports: No Symptoms Reported Neurological: Reports: No Symptoms Reported Skin: Reports: No Symptoms Reported Endocrine: Reports: No Symptoms Reported Misc: All systems neg except as marked - Vitals Vitals: Last Vital Signs Temp 36.6 C 08/30/18 11:42 Pulse 88 08/30/18 14:00 Resp 18 08/30/18 11:42 BP 129/62 08/30/18 11:42 Pulse Ox 97 08/30/18 11:42 - Exam Constitutional: Present: Alert, Oriented x3, Cooperative, Well developed, Well nourished, No distress ENT Exam: Present: normal ENT inspection, hearing grossly normal, pharynx normal, TMs normal Neck: Present: non-tender, full range of motion, supple, normal inspection Breasts: Present: Exam deferred, Nontender Respiratory: Present: chest non-tender, lungs clear, normal breath sounds, no respiratory distress, no accessory muscle use Cardiovascular/Chest: Present: normal peripheral pulses, regular rate, rhythm, no chest tenderness, no gallop, no JVD, edema Abdomen: Present: Normal bowel sounds, soft, nontender, nondistended, no rebound tenderness, no hepatospenomegaly, no masses, obese /Rectal: Present: Exam deferred Extremity: Present: normal range of motion, non-tender, normal inspection, lower extremity edema, pedal edema Skin Exam: Present: normal color, warm/dry, no cyanosis Lymphatic: Present: no adenopathy Neurologic: Present: 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 work on standing up and sitting down. Continue current meds. Recheck lab tomorrow morning. - Problems/Diagnosis (1) Cellulitis and abscess of foot Problem: Acute (2) Acute kidney injury superimposed on chronic kidney disease Problem: Acute (3) Cellulitis and abscess of left leg Problem: Acute (4) Hyperkalemia Problem: Acute (5) Rhabdomyolysis Problem: Ruled-out Qualifiers: Rhabdomyolysis type: traumatic Encounter type: initial encounter Qualified Code(s): T79.6XXA - Traumatic ischemia of muscle, initial encounter (6) Hypoglycemia Problem: Acute
[2018-08-31] MEDS: CLINDAMYCIN HCL 150 MG CAPSULE PO SCH ×2 (02:03→08:22)
[2018-08-31] MEDS: ASPIRIN 81 MG TABLET.DR PO SCH (08:22)
[2018-08-31] MEDS: GABAPENTIN 300 MG CAPSULE PO SCH (08:22)
[2018-08-31] MEDS: INSULIN GLARGINE,HUM.REC.ANLOG 100 UNITS/ML VIAL SC SCH (08:25)
[2018-08-31 08:28] LABS: Hematocrit 33.5 % (42.0-52.0); Hemoglobin 10.8 gm/dL (13.5-18.0); Mean Cell Volume 86.6 fl (78-100); Mean Corpuscular Hemoglobin 27.9 pg (27-31); Mean Corpuscular Hgb Conc 32.2 g/dl (32-36); Mean Platelet Volume 9.1 fl (8-11.3); Neutrophil # 3.6 K/mm3 (1.3-6.0); Neutrophil % 54.9 % (42-75.0); Platelet Count 355 K/mm3 (150-450); Red Blood Count 3.87 M/mm3 (4.7-6.0); Red Cell Distribution Width 14.5 % (11.5-14.0); White Blood Count 6.5 K/mm3 (4.0-10.5)
--- NOTE | 2018-08-31 08:35 | DS ---
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 He had been in the hospital a week earlier and was admitted at that time for rhabdomyolysis, dehydration, multiple body trauma and being on the floor for prolonged period of time. He improved enough during the initial hospitalization to be discharged home. Apparently he went home and sat in his recliner chair and rarely got out of it. When he did he fell and had to have assistance to get up and back into his chair. Family checked on him again a few days later and did not like the way he sounded went to check on him and then called EMS. He was soiled from urine and fecal incontinence, was dehydrated, and had altered decreased mental status. Examination of the feet shows a diabetic toe ulcer that appears to be full- thickness and embedded with cat hair. Dr. Fischer consulted, cleaned out the wound and recultured it. The culture grew out staph hemolyticus resistant to fluoroquinolones and he was changed to clindamycin. Blood cultures were sterile after 5 days. His admission lab showed renal failure in the stage IV territory at 23 EGFR. He was started on IV fluids but his potassium continued to rise to a peak of 6.7. I gave him Kayexalate to lower his potassium through this past weekend and yesterday it was down to 4.9. With rehydration and hemodilution his hemoglobin dropped from 12 g to 9.3 g and yesterday had rebounded to 9.7 g. His EGFR improved to 42 yesterday. His activity has been gradually progressed and yesterday he walked the [place] the [place] with the standby assist and contact- guard. He needs to go to rehab to get stronger and more independent so he can return to his home. He has agreed to do that. We have had difficulty finding a detention to accept him but he will be going to [facility]. He is alert oriented pleasant conversant and in no distress at the time of discharge. His disposition is improved and his prognosis is fair Procedures Performed: none - Conversation with medication okay but tends it in [place] Results and Findings: Lab Pending Results 08/24/18 19:20: WBC 14.8 H, RBC 4.09 L, Hgb 11.4 L, Hct 35.8 L, MCV 87.5, MCH 27.9, MCHC 31.8 L, RDW 14.7 H, Plt Count 590 H, MPV 9.1, Immature Gran % (Auto) 2.00 H, Immature Gran # (Auto) 0.29 H, Neutrophils % 83.5 H, Lymphocytes % 8.8 L, Monocytes % 4.7, Eosinophils % 0.5, Basophils % 0.5, Nucleated RBC % 0.0, Neutrophils # 12.3 H, Lymphocytes # 1.30 L, Monocytes # 0.7, Eosinophils # 0.1, Absolute Basophils 0.1 08/24/18 19:20: Sodium 137, Plasma Sodium 136, Potassium 5.7 H D, Chloride 104, Carbon Dioxide 21.3 L, Anion Gap 17.4 H, BUN 30 H, Creatinine 2.30 H D, Est GFR (Non-Af Amer) 30 L D, BUN/Creatinine Ratio 13.0, Random Glucose 66 L, Calcium 9.5, Calcium Adj for Albumin 10.5 H, Total Bilirubin 0.3, AST 83 H, ALT 65, Alkaline Phosphatase 61, Total Protein 7.5, Albumin 2.3 L 08/24/18 19:20: Lactic Acid, Venous 1.7 08/24/18 19:20: ESR 110 H 08/24/18 20:00: Urine Color Yellow, Urine Appearance Clear, Urine pH 5.5, Ur Specific [place] >=1.030, Urine Protein 30 H, Urine Glucose (UA) Negative, Urine Ketones Negative, Urine Blood 5 H, Urine Nitrate Negative, Urine Bilirubin Negative, Prot Sulfosalicylic Acd 1+, Urine Urobilinogen Normal, Ur Leukocyte Esterase Negative, Urine RBC None seen, Urine WBC None seen, Ur Epithelial Cells 0-5, Urine Bacteria 1+ H, Urine Mucus Few - 1+ H, Urine Culture Comments No culture indicated 08/24/18 20:00: Procalcitonin 0.26 08/24/18 20:00: Creatine Kinase 351 H 08/24/18 21:45: Random Glucose 46 L D 08/25/18 06:00: WBC 11.2 H D, RBC 3.83 L, Hgb 10.8 L, Hct 33.7 L, MCV 88.0, MCH 28.2, MCHC 32.0, RDW 14.7 H, Plt Count 495 H, MPV 8.8, Immature Gran % (Auto) 2.00 H, Immature Gran # (Auto) 0.23 H, Neutrophils % 73.0, Lymphocytes % 16.1 L, Monocytes % 6.6, Eosinophils % 1.5, Basophils % 0.8, Nucleated RBC % 0.0, Neutrophils # 8.2 H, Lymphocytes # 1.81, Monocytes # 0.7, Eosinophils # 0.2, Absolute Basophils 0.1 08/25/18 06:00: Sodium 135, Plasma Sodium 134, Potassium 5.7 H, Chloride 105, Carbon Dioxide 22.7 L, Anion Gap 13.0, BUN 30 H, Creatinine 2.32 H, Est GFR (Non-Af Amer) 30 L, BUN/Creatinine Ratio 12.9, Random Glucose 35 L*, Calcium 8.7, Calcium Adj for Albumin 9.9, Total Bilirubin 0.3, AST 77 H, ALT 59, Alkali ne Phosphatase 58, Total Protein 6.9, Albumin 2.1 L 08/25/18 10:45: WBC 12.0 H, RBC 4.16 L, Hgb 11.7 L, Hct 37.8 L, MCV 90.9, MCH 28.1, MCHC 31.0 L, RDW 14.9 H, Plt Count 582 H, MPV 9.2, Immature Gran % (Auto) 1.70 H, Immature Gran # (Auto) 0.20 H, Neutrophils % 74.0, Lymphocytes % 15.7 L, Monocytes % 6.2, Eosinophils % 1.5, Basophils % 0.9, Nucleated RBC % 0.0, Neutrophils # 8.9 H, Lymphocytes # 1.88, Monocytes # 0.7, Eosinophils # 0.2, Absolute Basophils 0.1 08/25/18 10:45: Sodium 138, Plasma Sodium 138, Potassium 5.9 H, Chloride 103, Carbon Dioxide 22.7 L, Anion Gap 18.2 H, BUN 31 H, Creatinine 2.29 H, Est GFR (Non-Af Amer) 30 L, BUN/Creatinine Ratio 13.5, Random Glucose 70 D, Calcium 9.2, Calcium Adj for Albumin 10.2, Total Bilirubin 0.3, AST 85 H, ALT 65, Alkaline Phosphatase 65, Total Protein 6.8, Albumin 2.4 L 08/26/18 11:40: WBC 10.7 H, RBC 3.97 L, Hgb 11.0 L, Hct 35.2 L, MCV 88.7, MCH 27.7, MCHC 31.3 L, RDW 14.7 H, Plt Count 566 H, MPV 9.0, Immature Gran % (Auto) 1.80 H, Immature Gran # (Auto) 0.19 H, Neutrophils % 72.3, Lymphocytes % 16.7 L, Monocytes % 6.7, Eosinophils % 1.6, Basophils % 0.9, Nucleated RBC % 0.0, Neutrophils # 7.7 H, Lymphocytes # 1.78, Monocytes # 0.7, Eosinophils # 0.2, Absolute Basophils 0.1 08/26/18 11:40: Sodium 132, Plasma Sodium 134, Potassium 6.1 H, Chloride 101, Carbon Dioxide 21.7 L, Anion Gap 15.4 H, BUN 42 H, Creatinine 2.62 H, Est GFR (Non-Af Amer) 26 L, BUN/Creatinine Ratio 16.0, Random Glucose 209 H D, Calcium 9.1, Calcium Adj for Albumin 10.1, Total Bilirubin 0.3, AST 57 H, ALT 55, Alkaline Phosphatase 65, Total Protein 7.7, Albumin 2.4 L 08/27/18 05:15: Sodium 133, Plasma Sodium 134, Potassium 6.7 H*, Chloride 105, Carbon Dioxide 19.4 L, Anion Gap 15.3 H, BUN 51 H, Creatinine 2.74 H, Est GFR (Non-Af Amer) 25 L, BUN/Creatinine Ratio 18.6, Random Glucose 160 H, Calcium 8.5, Calcium Adj for Albumin 9.7, Total Bilirubin 0.3, AST 42, ALT 44, Alkaline Phosphatase 56, Total Protein 6.7, Albumin 2.1 L 08/27/18 05:15: WBC 8.2 D, RBC 3.50 L, Hgb 9.7 L, Hct 30.7 L, MCV 87.7, MCH 27.7, MCHC 31.6 L, RDW 14.6 H, Plt Count 442, MPV 8.9, Immature Gran % (Auto) 1.50 H, Immature Gran # (Auto) 0.12 H, Neutrophils % 68.8, Lymphocytes % 18.0 L, Monocytes % 9.2 H, Eosinophils % 1.5, Basophils % 1.0, Nucleated RBC % 0.0, Neutrophils # 5.6, Lymphocytes # 1.47 L, Monocytes # 0.8, Eosinophils # 0.1, Absolute Basophils 0.1 08/27/18 07:00: Creatine Kinase 51 08/27/18 12:18: Potassium 6.3 H 08/27/18 20:00: Potassium 5.8 H 08/28/18 05:54: WBC 6.3 D, RBC 3.33 L, Hgb 9.3 L, Hct 29.4 L, MCV 88.3, MCH 27.9, MCHC 31.6 L, RDW 14.7 H, Plt Count 399, MPV 8.7, Immature Gran % (Auto) 1.70 H, Immature Gran # (Auto) 0.11 H, Neutrophils % 59.6, Lymphocytes % 24.4, Monocytes % 11.1 H, Eosinophils % 2.1, Basophils % 1.1 H, Nucleated RBC % 0.0, Neutrophils # 3.8, Lymphocytes # 1.54, Monocytes # 0.7, Eosinophils # 0.1, Absolute Basophils 0.1 08/28/18 05:54: Sodium 139, Plasma Sodium 140, Potassium 5.6 H, Chloride 107 H, Carbon Dioxide 22.2 L, Anion Gap 15.4 H, BUN 47 H, Creatinine 2.13 H D, Est GFR (Non-Af Amer) 33 L D, BUN/Creatinine Ratio 22.1 H, Random Glucose 139 H, Calcium 8.8, Calcium Adj for Albumin 10.0, Total Bilirubin 0.2, AST 44, ALT 37, Alkaline Phosphatase 54, Total Protein 6.5, Albumin 2.1 L 08/28/18 14:03: Sodium 137, Plasma Sodium 139, Potassium 5.4 H, Chloride 103, Carbon Dioxide 23.8 L, Anion Gap 15.6 H, BUN 46 H, Creatinine 2.08 H, Est GFR (Non-Af Amer) 34 L, BUN/Creatinine Ratio 22.1 H, Random Glucose 196 H D, Calcium 9.3, Calcium Adj for Albumin 10.4 H, Total Bilirubin 0.2, AST 52 H, ALT 44, Alkaline Phosphatase 61, Total Protein 7.1, Albumin 2.2 L 08/29/18 06:00: WBC 6.7, RBC 3.51 L, Hgb 9.7 L, Hct 30.9 L, MCV 88.0, MCH 27.6, MCHC 31.4 L, RDW 14.6 H, Plt Count 357, MPV 8.6, Immature Gran % (Auto) 1.00 H, Immature Gran # (Auto) 0.07 H, Neutrophils % 56.6, Lymphocytes % 26.2, Monocytes % 11.3 H, Eosinophils % 4.0 H, Basophils % 0.9, Nucleated RBC % 0.0, Neutrophils # 3.8, Lymphocytes # 1.76, Monocytes # 0.8, Eosinophils # 0.3, Absolute Basophils 0.1 08/29/18 06:00: Sodium 137, Plasma Sodium 138, Potassium 4.9 H, Chloride 104, Carbon Dioxide 24.1, Anion Gap 13.8, BUN 39 H, Creatinine 1.82 H, Est GFR (Non- Af Amer) 40 L, BUN/Creatinine Ratio 21.4, Random Glucose 146 H, Calcium 8.7, Calcium Adj for Albumin 9.9, Total Bilirubin 0.3, AST 43, ALT 38, Alkaline Phosphatase 53, Total Protein 6.7, Albumin 2.1 L Discharge Location: [facility] Disposition: SNF Condition: Poor Face to Face Encounter completed per CMS Guidelines: No Level of Care: SNF Discharge Activity: Activity as tolerated, Weight bearing Discharge Diet: Consistent carbs Residential Therapy: Physicial Therapy, Occupation Therapy Referrals: Ella Inman MD [Primary Care Provider] - Consultation Done:: Dr. Angeline Fischer, D.P.M. Additional Patient Instructions (free text): See Dr. Abdul in 2 weeks. Prescriptions (Any new or edited meds): Clindamycin HCl [Cleocin] 600 mg PO Q8H 10 Days capsule Insulin Glargine,Hum.rec.anlog [Lantus] 10 units SC DAILY #1 vial Gabapentin [Neurontin] 300 mg PO QID #120 capsule Complete Home Medications List: Complete Home Medication List: aspirin 81 mg tablet,delayed release 81 mg PO DAILY 09/29/17 benazepril 20 mg tablet 20 mg PO BID #180 tab 01/12/18 furosemide 20 mg tablet 20 mg PO DAILY #3 tab 07/20/18 Multivitamin [Multivitamins] 1 tab PO DAILY 08/24/18 Acetaminophen [Tylenol] 1,000 mg PO Q6H PRN tablet 08/31/18 Clindamycin HCl [Cleocin] 600 mg PO Q8H 10 Days capsule 08/31/18 Gabapentin [Neurontin] 300 mg PO QID #120 capsule 08/31/18 Insulin Glargine,Hum.rec.anlog [Lantus] 10 units SC DAILY #1 vial 08/31/18
[2018-08-31 08:41] LABS: Albumin * 2.3 gm/dl (3.4-5.0); Anion Gap 14.7 mmol/L (6.8-13.8); BUN/Creatinine Ratio 20.6 (9.0-21.6); Bilirubin, Total 0.4 mg/dL (0.0-1.1); Ca. Corrected For Albumin 10.5 mg/dL (8.4-10.2); Calcium * 9.5 mg/dL (7.9-10.9); Carbon Dioxide 23.1 mmol/L (24-32.6); Potassium 4.8 mmol/L (3.4-4.6); Total Protein 7.5 gm/dL (6.2-8.2)
[2018-08-31 11:32] VITALS: BP 139/68
== END 2018-08-31 12:08 | DRG 571 ==
LOC: MS 18:33 → ER 18:33 → MS 21:08
PROVIDERS: ADMIT Family Medicine; ATTEND Internal Medicine
DX: E66.01 Morbid (severe) obesity due to excess calories; N17.9 Acute kidney failure, unspecified; N18.4 Chronic kidney disease, stage 4 (severe); E11.42 Type 2 diabetes mellitus with diabetic polyneuropathy; I12.9 Hypertensive chronic kidney disease with stage 1 through stage 4 chronic kidney disease, or unspecified chronic kidney disease; E11.65 Type 2 diabetes mellitus with hyperglycemia; E11.649 Type 2 diabetes mellitus with hypoglycemia without coma; B95.7 Other staphylococcus as the cause of diseases classified elsewhere; L97.522 Non-pressure chronic ulcer of other part of left foot with fat layer exposed; E11.22 Type 2 diabetes mellitus with diabetic chronic kidney disease; Z79.84 Long term (current) use of oral hypoglycemic drugs; E11.621 Type 2 diabetes mellitus with foot ulcer; T79.6XXA Traumatic ischemia of muscle, initial encounter; L03.116 Cellulitis of left lower limb; E87.5 Hyperkalemia; R62.7 Adult failure to thrive; L02.612 Cutaneous abscess of left foot
CPT/HCPCS: 36415; 80053; 81001; 82550; 82947; 83605; 83874; 84132; 84145; 85025; 85652; 87040; 87070; 87077; 87081; 87186; 96361; 96365; 96366; 96367; 97110; 97116; 97162; 99285; G0378